=== PATIENT | female | born 1950 | race Native Hawaiian/Other Pacific Islander ===

== ENCOUNTER 2019-04-28 00:41 | Inpatient (IN) | payer MEDICARE ==
[2019-04-28 01:12] LABS: URINE SOURCE RANDOM
[2019-04-28 01:38] LABS: % NEUTROPHILS 53.8 % (40.0-80.0); HEMATOCRIT 39.5 % (41.0-60); MEAN CELL VOLUME 97.3 fl (81-100); MEAN CORPUSCULAR HEMOGLOBIN 32.1 pg (27.0-31.0); PLATELET COUNT 166 Th/cmm (150-400); RED BLOOD COUNT 4.06 Mil/cmm (3.80-5.20); RED CELL DISTRIBUTION WIDTH 12.8 % (11.5-20.0); WHITE BLOOD COUNT 3.7 Th/cmm (4.8-10.8)
--- NOTE | 2019-04-28 01:38 | ED Physician Chart ---
ED Chief Complaint/HPI - Patient Information Date Seen:: 04/28/19 Time Seen:: 01:34 Chief Complaint:: aggression geropsych History of Present Illness:: 69 yr old female with hx of schizophrenia with agitation aggression and hx of lashing out verbally aggresive and with sexually inappropriate behaviours Allergies:: Allergies Allergy/AdvReac Type Severity Reaction Status Date / Time No Known Allergies Allergy Verified 04/28/19 00:50 Vitals:: Vital Signs - 8 hr 04/28/19 00:50 Temp 98.2 F HR 79 RR 17 BP 138/69 O2 Sat % 96 ED Review of Systems - Review of Systems General/Constitutional: No fever, No chills, No weight loss, No weakness, No diaphoresis, No edema, No loss of appetite Skin: No skin lesions, No rash, No bruising Head: No headache, No light-headedness Eyes: No loss of vision, No pain, No diplopia ENT: No earache, No nasal drainage, No sore throat, No tinnitus Neck: No neck pain, No swelling, No thyromegaly, No stiffness, No mass noted Cardio Vascular: No chest pain, No palpitations, No PND, No orthopnea, No edema Pulmonary: No SOB, No cough, No sputum, No wheezing GI: No nausea, No vomiting, No diarrhea, No pain, No melena, No hematochezia, No constipation, No hematemesis G/U: No dysuria, No frequency, No hematuria Musculoskeletal: No bone or joint pain, No back pain, No muscle pain Endocrine: No polyuria, No polydipsia Psychiatric: No prior psych history, No depression, No anxiety, No suicidal ideation Hematopoietic: No bruising, No lymphadenopathy Allergic/Immuno: No urticaria, No angioedema Neurological: No syncope, No focal symptoms, No weakness, No paresthesia, No headache, No seizure, No dizziness, No confusion, No vertigo ED Past Medical History - Past Medical History Past Medical History: No significant medical hx Family Medical History - Family Member Mother History Unknown: Yes ED Physical Exam - Physical Examination General/Constitutional: Awake, Well-developed, well-nourished, Alert, No distress, GCS 15, Non-toxic appearing, Ambulatory Head: Atraumatic Eyes: Lids, conjuctiva normal, PERRL, EOMI Skin: Nl inspection, No rash, No skin lesions, No ecchymosis, Well hydrated, No lymphadenopathy ENMT: External ears, nose nl, Nasal exam nl, Lips, teeth, gums nl Neck: Nontender, Full ROM w/o pain, No JVD, No nuchal rigidity, No bruit, No mass, No stridor Respiratory: Nl effort/Exclusion, Clear to Auscultation, No Wheeze/Rhonchi/Rales Cardio Vascular: RRR, No murmur, gallop, rubs, NL S1 S2 GI: No tenderness/rebounding/guarding, No organomegaly, No hernia, Normal BS's, Nondistended, No mass/bruits, No McBurney tenderness : No CVA tenderness Extremities: No tenderness or effusion, Full ROM, normal strength in all extremities, No edema, Normal digits & nails Neuro/Psych: Alert/oriented, DTR's symmetric, Normal sensory exam, Normal motor strength, Judgement/insight normal, Mood normal, Normal gait, No focal deficits Misc: Normal back, No paraspinal tenderness ED Assessment - Assessment General Assessment: schizophrenia aggression agitation ED Septic Shock - . Is Septic Shock (SBP<90, OR Lactate>4 mmol\L) present?: No - <6hrs of presentation: Vital Signs: Vital Signs - 8 hr 04/28/ 00:50 Temp 98.2 F HR 79 RR 17 BP 138/69 O2 Sat % 96 ED Reassessment (Disposition) - Reassessment Reassessment:: schizophrenia agitation aggression - Diagnosis Diagnosis:: as above - Patient Disposition Admitted to:: [facility] Condition at Disposition:: Stable
[2019-04-28 01:39] LABS: % EOSINOPHILS 1.9 % (0.0-5.0); % LYMPHOCYTES 33.4 % (20.0-50.0); % MONOCYTES 10.9 % (2.0-10.0); EOSINOPHILE ABSOLUTE 0.1 Th/cmm (0.1-0.4); LYMPHOCYTE ABSOLUTE 1.2 Th/cmm (1.5-3.0); MONOCYTE ABSOLUTE 0.4 Th/cmm (0.3-1.0)
[2019-04-28 01:47] LABS: CHLORIDE 110 mEq/L (98-107); POTASSIUM SERUM 3.3 mEq/L (3.5-5.1); SODIUM SERUM 142 mEq/L (136-145)
[2019-04-28 01:48] LABS: ALBUMIN 3.9 gm/dL (3.7-5.3); ANION GAP 11.5 (7.0-16.0); BILIRUBIN,TOTAL 1.2 mg/dL (0.3-1.0); BUN - UREA NITROGEN 13 mg/dL (7-25); CALCIUM SERUM 9.5 mg/dL (8.6-10.3); CARBON DIOXIDE 23.8 mEq/L (21.0-31.0); CREATININE - SERUM 0.5 mg/dL (0.6-1.2); GFR AFRICAN-AMERICAN > 60.0 ml/min (>90); GFR NON AFRICAN-AMERICAN > 60.0 ml/min; GLUCOSE 110 mg/dL (70-105); SGOT 95 U/L (13-39); SGPT/ALT 99 U/L (7-52)
[2019-04-28 01:49] LABS: ALKALINE PHOSPHATASE 104 U/L (34-104)
[2019-04-28 02:00] LABS: URINE BILIRUBIN NEGATIVE (NEGATIVE); URINE BLOOD NEGATIVE (NEGATIVE); URINE CLARITY HAZY (CLEAR); URINE COLOR ORANGE; URINE GLUCOSE (UA) NEGATIVE (NEGATIVE); URINE KETONE TRACE mg/dL (NEGATIVE); URINE MICROSCOPIC INDICATED? YES; URINE PROTEIN 30 mg/dL (NEGATIVE)
[2019-04-28 02:01] LABS: URINE LEUKOCYTE ESTERASE TRACE (NEGATIVE); URINE NITRATE POSITIVE (NEGATIVE)
[2019-04-28 02:02] LABS: URINE EPITHELIAL CELLS FEW /lpf (FEW); URINE RBC 0-2 /hpf (0-5); URINE WBC 0-2 /hpf (0-5)
[2019-04-28 02:03] LABS: URINE BACTERIA MODERATE /hpf (NONE SEEN)
[2019-04-28] MEDS ORDERED: Potassium Chloride 20 mEq ER Tab PO ONE ×2 (02:22→02:27)
[2019-04-28 03:25] VITALS: BP 142/82
[2019-04-28] MEDS ORDERED: Maalox 30 mL Cup PO PRN (03:32)
[2019-04-28 06:46] LABS: CHOLESTEROL 95 mg/dL (<200); HDL -HIGH DENSITY LIPOPROTEIN 31 mg/dL (23-92); TRIGLYCERIDES 49 mg/dL (<150)
[2019-04-28] MEDS: Multivitamin Tab PO SCH (08:42)
--- NOTE | 2019-04-28 13:49 | History & Physical ---
ADMIT DATE: 04/28/2019 CHIEF COMPLAINT: Medical evaluation. HISTORY OF PRESENT ILLNESS: This is a 69-year-old female with history of chronic low back pain, seizure, psych disorder, admitted under the service of Dr. Joseph. The patient denies chest pain, shortness of breath. The patient is a poor historian. PAST MEDICAL HISTORY: As mentioned in the history of present illness. PAST SURGICAL HISTORY: Status post back surgery. ALLERGIES: No known drug allergies. MEDICATIONS: [place], Tylenol, Abilify, Colace, Pepcid, lactulose, Keppra, melatonin, multivitamin and Seroquel. FAMILY HISTORY: Noncontributory. SOCIAL HISTORY: Avid smoker. Drank when she was younger. No intravenous drug use. The patient did a lot of work including bus driving, single. REVIEW OF SYSTEMS: GENERAL: The patient denies any cardiac symptoms. HEENT: No blurred vision. LUNGS: No diagnosis of COPD or asthma. Chronic smoker. HEART: The patient denies hypertension or coronary artery disease. ABDOMEN: No nausea, vomiting, pain. GENITOURINARY: The patient denies increased frequency or dysuria. The patient with abnormal UA. NEUROLOGIC: The patient denies seizure, but the patient on Keppra. PSYCHIATRIC: See above. PHYSICAL EXAMINATION: VITAL SIGNS: Blood pressure 125/70, respirations 18, pulse 69, temperature 98.1. GENERAL: An elderly female, appears her stated age. NECK: Supple. LUNGS: Equal breath sounds, otherwise clear to auscultation. HEART: Regular rate and rhythm without appreciable murmur. ABDOMEN: Soft, nontender. Positive bowel sounds. ____ refused. EXTREMITIES: No clubbing, cyanosis or edema. NEUROLOGIC: The patient is alert. ____. LABORATORY DATA: WBC 3.7, hemoglobin 13, platelets 166. Sodium 142, potassium 3.3, BUN 13, creatinine 0.5, glucose 110, AST and ALT, 95 and 99 respectively. UA showed moderate bacteria. ASSESSMENT AND PLAN: Leukopenia, hypokalemia, elevated liver function tests, and denies hepatitis, seizure, but severe low back pain. Continue the patient on lactulose and ____ medications. The patient was given potassium and antibiotic. We will monitor the patient's signs and symptoms for urinary tract infection. We will continue to follow with you. JOB# [id number]
[2019-04-28] MEDS: Lactulose 10 Gm/15 mL 30mL UDC PO SCH ×2 (14:38→20:47)
[2019-04-28] MEDS ORDERED: Non-Formulary Item 1 EA (Melatonin [Melatonin] 3 MG) PO SCH (21:00)
[2019-04-29 07:05] LABS: A1C 5.2 % (4.8-5.6)
[2019-04-29] MEDS: Multivitamin Tab PO SCH ×2 (08:36→08:45)
[2019-04-29] MEDS: Multivitamin w/ Minerals Tab PO SCH ×2 (08:37→08:45)
[2019-04-29] MEDS: Lactulose 10 Gm/15 mL 30mL UDC PO SCH ×3 (08:40→20:44)
[2019-04-29 09:11] LABS: HEP A AB IGM Negative (Negative); HEP B CORE IGM Negative (Negative); HEP B SURFACE AG QL Negative (Negative); HEP C ANTIBODY >11.0 s/co ratio (0.0-0.9)
--- NOTE | 2019-04-29 12:18 | Progress Notes ---
DATE: 04/29/2019 SUBJECTIVE: The patient was up in wheelchair in the hallway in front of the dining room. The patient was alert, calm and pleasant. The patient reported that she is doing well. She said she is happy. The patient reported that she just have the breakfast. The patient reported that she did not eat the meat that was provided this morning because she ate beef last evening. The patient reported that she slept well. When asked if she took her medications, the patient stated that she did not take a blue pill, which she said was for seizure. The patient stated that she does not have a seizure. The patient went on to describe what happened and how they thought that she has a seizure, but she did not have seizure. The patient continued to have some flight of ideas. The patient continued to be delusional, talking about different things. The patient has delusion that she does need to take her medications. OBJECTIVE: The patient continued to be calm and pleasant this morning; however, the patient continued to exhibit psychotic symptoms. The staff reported that the patient had refused to take all her medications stating that she does not need them. The staff reported that the patient went out for a smoke. When the staff asked her to put the cigarette butt in the cigarette butt receptacle, the patient did not want to do it and the patient made a big scene. The staff reported that the data entry processor has to go and get the receptacle from another part of the patio for the patient to dispose her cigarette butt. The staff reported that the patient has been eating okay and slept okay. ASSESSMENT: 1. Schizophrenia, chronic paranoid type, in acute exacerbation. 2. Vascular dementia with psychosis, depression and behavioral disturbance. 3. Impulse control disorder, not otherwise specified. 4. Personality change due to medical condition. PLAN: We will continue the patient on Abilify and lower dose of Seroquel. If the patient continued to refuse to take her medication, we will apply for [place] and we will discuss the situation with oncology social worker for possibly applying for a conservatorship since the patient continued to have this delusion that she does need to take medication. JOB# [id number]
--- NOTE | 2019-04-29 12:37 | Internal Medicine Prog Note ---
Internal Medicine Subjective - Subjective Patient seen and examined:: with staff, chart reviewed Patient is:: awake, verbal, interactive Patient Complaints of:: congestion Per staff patient has:: no adverse event, no episodes of fall, poor appetite Internal Medicine Objective - Results Result Diagrams: 04/28/19 01:05 04/28/19 01:00 Recent Labs: Laboratory Last Values WBC 3.7 Th/cmm (4.8-10.8) L 04/28/19 01:05 RBC 4.06 Mil/cmm (3.80-5.20) 04/28/19 01:05 Hgb 13.0 gm/dL (12-16) 04/28/19 01:05 Hct 39.5 % (41.0-60) L 04/28/19 01:05 MCV 97.3 fl (81-100) 04/28/19 01:05 MCH 32.1 pg (27.0-31.0) H 04/28/19 01:05 MCHC Differential 33.0 pg (28.0-36.0) 04/28/19 01:05 RDW 12.8 % (11.5-20.0) 04/28/19 01:05 Plt Count 166 Th/cmm (150-400) 04/28/19 01:05 MPV 7.6 fl 04/28/19 01:05 Neutrophils % 53.8 % (40.0-80.0) 04/28/19 01:05 Lymphocytes % 33.4 % (20.0-50.0) 04/28/19 01:05 Monocytes % 10.9 % (2.0-10.0) H 04/28/19 01:05 Eosinophils % 1.9 % (0.0-5.0) 04/28/19 01:05 Basophils % 0.0 % (0.0-2.0) 04/28/19 01:05 Sodium 142 mEq/L (136-145) 04/28/19 01:00 Potassium 3.3 mEq/L (3.5-5.1) L 04/28/19 01:00 Chloride 110 mEq/L (98-107) H 04/28/19 01:00 Carbon Dioxide 23.8 mEq/L (21.0-31.0) 04/28/19 01:00 Anion Gap 11.5 (7.0-16.0) 04/28/19 01:00 BUN 13 mg/dL (7-25) 04/28/19 01:00 Creatinine 0.5 mg/dL (0.6-1.2) L 04/28/19 01:00 Est GFR ( Amer) > 60.0 ml/min (>90) 04/28/19 01:00 Est GFR (Non-Af Amer) > 60.0 ml/min 04/28/19 01:00 BUN/Creatinine Ratio 26.0 04/28/19 01:00 Glucose 110 mg/dL (70-105) H 04/28/19 01:00 Whole Bld Lactic Acid 1.05 mmol/L (0.60-1.99) 04/28/19 01:05 Calcium 9.5 mg/dL (8.6-10.3) 04/28/19 01:00 Total Bilirubin 1.2 mg/dL (0.3-1.0) H 04/28/19 01:00 AST 95 U/L (13-39) H 04/28/19 01:00 ALT 99 U/L (7-52) H 04/28/19 01:00 Alkaline Phosphatase 104 U/L (34-104) 04/28/19 01:00 Total Protein 8.0 gm/dL (6.0-8.3) 04/28/19 01:00 Albumin 3.9 gm/dL (3.7-5.3) 04/28/19 01:00 Globulin 4.1 gm/dL 04/28/19 01:00 Albumin/Globulin Ratio 1.0 (1.0-1.8) 04/28/19 01:00 Triglycerides 49 mg/dL (<150) 04/28/19 01:00 Cholesterol 95 mg/dL (<200) 04/28/19 01:00 LDL Cholesterol Direct 57 mg/dL (75-193) L 04/28/19 01:00 HDL Cholesterol 31 mg/dL (23-92) 04/28/19 01:00 TSH 1.00 uIU/ml (0.34-5.60) 04/28/19 01:00 Urine Source RANDOM 04/28/19 01:00 Urine Color ORANGE 04/28/19 01:00 Urine Clarity HAZY (CLEAR) 04/28/19 01:00 Urine pH 6.0 (4.6 - 8.0) 04/28/19 01:00 Ur Specific [place] 1.025 (1.005-1.030) 04/28/19 01:00 Urine Protein 30 mg/dL (NEGATIVE) H 04/28/19 01:00 Urine Glucose (UA) NEGATIVE mg/dL (NEGATIVE) 04/28/19 01:00 Urine Ketones TRACE mg/dL (NEGATIVE) 04/28/19 01:00 Urine Blood NEGATIVE (NEGATIVE) 04/28/19 01:00 Urine Nitrate POSITIVE (NEGATIVE) H 04/28/19 01:00 Urine Bilirubin NEGATIVE (NEGATIVE) 04/28/19 01:00 Urine Urobilinogen 4.0 E.U./dL (0.2 - 1.0) H 04/28/19 01:00 Ur Leukocyte Esterase TRACE (NEGATIVE) H 04/28/19 01:00 Urine RBC 0-2 /hpf (0-5) 04/28/19 01:00 Urine WBC 0-2 /hpf (0-5) 04/28/19 01:00 Ur Epithelial Cells FEW /lpf (FEW) 04/28/19 01:00 Urine Bacteria MODERATE /hpf (NONE SEEN) H 04/28/19 01:00 Hepatitis A IgM Ab Negative (Negative) 04/28/19 08:56 Hep Bs Antigen Negative (Negative) 04/28/19 08:56 Hep B Core IgM Ab Negative (Negative) 04/28/19 08:56 Hepatitis C Antibody >11.0 s/co ratio (0.0-0.9) H 04/28/19 08:56 - Physical Exam Vitals and I&O: Vital Signs Temp 99.0 F 04/29/19 06:28 Pulse 80 04/29/19 06:28 Resp 20 04/29/19 06:28 BP 112/72 04/28/19 21:11 Pulse Ox 97 04/29/19 06:28 Intake & Output 04/28/19 04/29/19 04/29/19 18:59 06:59 18:59 Intake Total 500 360 Balance 500 360 Intake: Oral 500 360 Other: # Voids 3 2 # Bowel Movements 1 1 Active Medications: Current Medications Acetaminophen (Tylenol) 650 mg PO Q4HR PRN PRN Reason: Pain or Fever >101 Stop: 06/27/19 12:31 Al Hydrox/Mg Hydrox/Simethicone (Maalox) 30 ml PO Q4HR PRN PRN Reason: GI DISTRESS Stop: 06/27/19 03:31 Aripiprazole (Abilify) 10 mg PO DAILY [facility]; Protocol Stop: 06/28/19 08:59 Last Admin: 04/29/19 08:45 Dose: Not Given Docusate Sodium (Colace) 100 mg PO DAILY [facility] Stop: 06/28/19 08:59 Last Admin: 04/29/19 08:45 Dose: Not Given Famotidine (Pepcid) 40 mg PO DAILY [facility] Stop: 06/28/19 08:59 Last Admin: 04/29/19 08:45 Dose: Not Given Lactulose (Cephulac) 30 gm PO TID [facility] Stop: 06/27/19 13:59 Last Admin: 04/29/19 08:40 Dose: Not Given Levetiracetam (Keppra) 500 mg PO Q12H [facility] Stop: 06/27/19 12:44 Last Admin: 04/29/19 01:00 Dose: Not Given Multivitamins/Vitamin C (Theragran) 1 tab PO DAILY [facility] Stop: 06/27/19 08:59 Last Admin: 04/29/19 08:45 Dose: Not Given Quetiapine Fumarate (Seroquel) 25 mg PO BID [facility]; Protocol Stop: 05/02/19 16:59 Last Admin: 04/29/19 08:44 Dose: Not Given Zolpidem Tartrate (Ambien) 5 mg PO HS PRN PRN Reason: Insomnia Stop: 06/27/19 03:31 General: demented HEENT: NC/AT, PERRLA, EOMI Neck: Supple, No JVD Lungs: CTAB Cardiovascular: RRR, Normal S1, Normal S2 Abdomen: soft, thin, non-distended, positive bowel sound Extremities: excoriation Internal Medicine Assmt/Plan - Assessment Assessment: ASSESSMENT AND PLAN: Leukopenia, hypokalemia, elevated liver function tests, and denies hepatitis, seizure, but severe low back pain. - Plan Plan: PLAN: Continue the patient on lactulose and _rest of___ medications. The patient was given potassium and antibiotic. We will monitor the patient's signs and symptoms for urinary tract infection. We will continue to follow with you.
--- NOTE | 2019-04-29 12:46 | Psychiatric Evaluation ---
DATE OF SERVICE: 04/28/2019 REASON FOR ADMISSION: The patient was admitted for exacerbation of her psychosis as well as increased agitation and aggression at [facility]. HISTORY OF PRESENT ILLNESS: The patient is a 69-year-old female who has been seen at [facility]. On the day of admission, the staff called to request direct admission for the patient because the patient has increased episodes of agitation and aggression. Upon interview, the patient appeared to be a poor historian. The patient was able to give her name. The patient stated that she is 79 years old. The patient was able to give her birthday. When asked why she is here, the patient stated that she got upset because the staff over there did not want to take care of her. The patient appeared to be quite delusional. The patient talked about different things. The patient tended to ramble with flight of ideas. The patient does not really have pressured speech. When asked how many times she has been , the patient had difficulty recalling. The patient had to mention each of her ex-husbands. Finally, the patient was able to count 5. The patient reported that she all of them. The patient stated that she does not have any children. The patient reported that she has been eating and sleeping okay. The patient reported that she had been in psychiatric hospital before, but not able to remember exactly how many times. The patient mentioned that she had been in the hospital in [place]. The patient was not able to say what she was diagnosed with. The patient repeated herself several times that she is not crazy. The patient reported that her mother has been in the institution before. PAST PSYCHIATRIC HISTORY: As above. The patient reported that she had been in psychiatric hospital before. MEDICAL HISTORY: Traumatic subdural hematoma of the brain, seizure disorder and spondylosis. SURGICAL HISTORY: The patient reported that she had back surgery. MEDICATIONS: The patient currently is on Tylenol, Abilify 5 mg daily, ceftriaxone, docusate sodium, Pepcid 40 mg daily, lactulose, Keppra, multiple vitamin, potassium chloride, Seroquel 50 mg b.i.d. and Ambien 5 mg at bedtime p.r.n. ALLERGIES: No known allergy. PERSONAL HISTORY: The patient reported that she is the youngest of 3. She has 2 older brothers. The patient reported that she went to medical school, but she dropped out when she saw them do surgery. 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 SUBSTANCE ABUSE HISTORY: The patient admitted to drinking and smoking before. The patient reported that she tried marijuana once. MENTAL STATUS EXAMINATION: The patient appeared appropriate for stated age. The patient was cooperative, maintained good eye contact. SPEECH: appeared to be normal, but somewhat rambling. The patient appeared to have some flight of ideas. MOOD: The patient reported that she is doing okay. When asked to rate her mood on a 0-10 scale, 0 being normal and happy, and 10 being very depressed. The patient was not able to give a specific number. The patient was not able to give logical interpretation to any of the 3 proverbs. MEMORY: appeared to be reasonably good for immediate memory. The patient was able to repeat the 4 items after they were given to her twice. The patient was able to recall 3 or 4 items after a few minutes. When given hints, the patient still cannot recall the fourth item. INSIGHT: poor. JUDGMENT: impaired. DIAGNOSTIC IMPRESSION: AXIS I: 1. Schizophrenia, chronic paranoid type, in acute exacerbation. 2. Vascular dementia with psychosis. 3. Impulse control disorder, not otherwise specified. 4. Personality change due to medical condition. AXIS II: Deferred. AXIS III: Traumatic subdural hematoma of the brain, seizure disorder and spondylosis. AXIS IV: Medical and mental illnesses. AXIS V: Current 20, past year unknown. PLAN: We will increase Abilify to 10 mg p.o. q. a.m. We will taper off of Seroquel for duplication of antipsychotic. We will adjust the Abilify to control her psychotic symptoms. We will monitor to see if the patient will be cooperative with her medications. Consider adding Trileptal for poor impulse control. ESTIMATED LENGTH OF STAY: 7-10 days. DISCHARGE CRITERIA: Include improvement of her psychosis and continued compliance with medications and treatment. JOB# [id number] [facility]
--- NOTE | 2019-04-29 20:41 | Consultation ---
DATE OF CONSULTATION: 04/29/2019 REQUESTING PHYSICIAN: Luis Miguel Reyes M.D. TYPE OF CONSULTATION: Psychology. HISTORY OF PRESENT ILLNESS: The patient is a 69-year-old female. The following is by review of the medical record and by the patient's self-report. The patient is being admitted due to increased agitation and aggression as well as exacerbation of psychosis. The patient is a resident of [facility]. The staff at the patient's facility reports that the patient had been intrusive and aggressive with the staff at her facility. Upon interview, the patient stated that she did get upset because she feels the staff is ignoring her and not taking care of her. The patient presents with rambling speech and is being intrusive with the staff on the geropsychiatric unit. The patient was having difficulty responding relevantly to the clinical questions being asked. The patient did not state whether she had been hospitalized here before; however, the patient states she has had a previous psychiatric hospitalization. The patient appears to be difficult to cognitively and behaviorally redirect. PAST MEDICAL HISTORY: Please see history and physical by Dr. Mccallum. PAST PSYCHIATRIC HISTORY: The record indicates the patient has a history of previous psychiatric hospitalizations. The patient is under the care of a psychiatrist at her facility. The patient's record indicates a history of schizophrenia, chronic paranoid type. CURRENT MEDICATIONS: Please see medication reconciliation. ALLERGIES: No known allergies. SUBSTANCE ABUSE HISTORY: The patient denied any history of illicit drug use. The patient admits to using alcohol and also tobacco in the past. The patient stated she used to be a smoker and had tried cannabis once. PSYCHOSOCIAL HISTORY: The patient states that she has 2 older brothers. 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 The patient stated that she went to medical school. The patient did not state any other educational history. The patient states that she is a Yazidi. The patient states that she is actually and has never been and has no children. The patient went on to state that she had been 5 times. The information above is unverifiable at the time of this clinical interview. She denied any history of physical or sexual abuse. She denied any current legal problems. MENTAL STATUS EXAMINATION: The patient appears to be her stated age. The patient's attitude is generally cooperative. Eye contact is good. Speech is rambling and pressured. Thought process includes flight of ideas as well as ideas of reference. The patient did not present with any suspiciousness. The patient denied any auditory or visual hallucinations. The patient denied any suicidal ideation, plan or intention. Mood is euthymic. Affect is broad and animated. The patient is not making much sense and is answering questions at times irrelevantly. The patient's behavior on the unit has been intrusive with staff as well as peers. The patient is not responding well to cognitive and behavioral redirection. Impulse control is inadequate. Concentration seems to be fair to poor and is highly distractible. The patient is not able to sustain focus and attention for more than approximately 5-10 seconds. The patient was unable to perform the serial 3 subtractions. The patient was able to repeat 3 items given to her the first time and was able to repeat 2 out of the 3 items after several minutes. The patient was unable to recall milestones and seems possibly to be confabulating regarding her long-term memory and history. Immediate memory seems to be intact. Short-term memory is fair. Sensorium is alert and oriented times 3. The patient was unable to give a logical interpretation to any of the proverbs. Insight is poor. Judgment is impaired. DIAGNOSTIC IMPRESSION: AXIS I: 1. Schizophrenia, chronic paranoid type by history. 2. Vascular dementia with psychosis. 3. Impulse control disorder, not otherwise specified. 4. Personality change due to medical condition. AXIS II: Deferred. AXIS III: Please see history and physical by Dr. Mccallum. TREATMENT PLAN: The patient has been seen by Dr. Reyes for psychiatric evaluation and for the management of the patient's psychotropic medications. The attending psychiatrist indicates that the patient's Abilify will be increased to 10 mg p.o. q.a.m. The patient is being tapered off of Seroquel due to duplication of an antipsychotic medication. We will provide supportive psychotherapy to include reality orientation, differentiation and integration. We will provide a limit setting as well as boundary definitions and boundary awareness due to the patient's intrusiveness with peers and impoverished understanding of social boundaries. We will provide coping strategies for phase of life issues as well as for chronic severe mental illness. We will encourage the patient to demonstrate emotional and self-regulation and to verbalize her concerns versus acting out. We will provide motivational enhancement for the patient to become compliant and stay compliant with all aspects of her care and treatment. Thank you, Dr. Reyes for this consult and the opportunity to participate in this patient's care. JOB# [id number] [facility]
[2019-04-30] MEDS: Multivitamin w/ Minerals Tab PO SCH (08:02)
[2019-04-30] MEDS: Lactulose 10 Gm/15 mL 30mL UDC PO SCH ×3 (08:02→21:25)
[2019-04-30] MEDS: Multivitamin Tab PO SCH (08:02)
--- NOTE | 2019-04-30 14:00 | Internal Medicine Prog Note ---
Internal Medicine Subjective - Subjective Patient seen and examined:: with staff, chart reviewed Patient is:: awake, verbal, interactive Patient Complaints of:: congestion Per staff patient has:: no adverse event, no episodes of fall, poor appetite Internal Medicine Objective - Results Result Diagrams: 04/28/19 01:05 04/28/19 01:00 Recent Labs: Laboratory Last Values WBC 3.7 Th/cmm (4.8-10.8) L 04/28/19 01:05 RBC 4.06 Mil/cmm (3.80-5.20) 04/28/19 01:05 Hgb 13.0 gm/dL (12-16) 04/28/19 01:05 Hct 39.5 % (41.0-60) L 04/28/19 01:05 MCV 97.3 fl (81-100) 04/28/19 01:05 MCH 32.1 pg (27.0-31.0) H 04/28/19 01:05 MCHC Differential 33.0 pg (28.0-36.0) 04/28/19 01:05 RDW 12.8 % (11.5-20.0) 04/28/19 01:05 Plt Count 166 Th/cmm (150-400) 04/28/19 01:05 MPV 7.6 fl 04/28/19 01:05 Neutrophils % 53.8 % (40.0-80.0) 04/28/19 01:05 Lymphocytes % 33.4 % (20.0-50.0) 04/28/19 01:05 Monocytes % 10.9 % (2.0-10.0) H 04/28/19 01:05 Eosinophils % 1.9 % (0.0-5.0) 04/28/19 01:05 Basophils % 0.0 % (0.0-2.0) 04/28/19 01:05 Sodium 142 mEq/L (136-145) 04/28/19 01:00 Potassium 3.3 mEq/L (3.5-5.1) L 04/28/19 01:00 Chloride 110 mEq/L (98-107) H 04/28/19 01:00 Carbon Dioxide 23.8 mEq/L (21.0-31.0) 04/28/19 01:00 Anion Gap 11.5 (7.0-16.0) 04/28/19 01:00 BUN 13 mg/dL (7-25) 04/28/19 01:00 Creatinine 0.5 mg/dL (0.6-1.2) L 04/28/19 01:00 Est GFR ( Amer) > 60.0 ml/min (>90) 04/28/19 01:00 Est GFR (Non-Af Amer) > 60.0 ml/min 04/28/19 01:00 BUN/Creatinine Ratio 26.0 04/28/19 01:00 Glucose 110 mg/dL (70-105) H 04/28/19 01:00 Whole Bld Lactic Acid 1.05 mmol/L (0.60-1.99) 04/28/19 01:05 Calcium 9.5 mg/dL (8.6-10.3) 04/28/19 01:00 Total Bilirubin 1.2 mg/dL (0.3-1.0) H 04/28/19 01:00 AST 95 U/L (13-39) H 04/28/19 01:00 ALT 99 U/L (7-52) H 04/28/19 01:00 Alkaline Phosphatase 104 U/L (34-104) 04/28/19 01:00 Total Protein 8.0 gm/dL (6.0-8.3) 04/28/19 01:00 Albumin 3.9 gm/dL (3.7-5.3) 04/28/19 01:00 Globulin 4.1 gm/dL 04/28/19 01:00 Albumin/Globulin Ratio 1.0 (1.0-1.8) 04/28/19 01:00 Triglycerides 49 mg/dL (<150) 04/28/19 01:00 Cholesterol 95 mg/dL (<200) 04/28/19 01:00 LDL Cholesterol Direct 57 mg/dL (75-193) L 04/28/19 01:00 HDL Cholesterol 31 mg/dL (23-92) 04/28/19 01:00 TSH 1.00 uIU/ml (0.34-5.60) 04/28/19 01:00 Urine Source RANDOM 04/28/19 01:00 Urine Color ORANGE 04/28/19 01:00 Urine Clarity HAZY (CLEAR) 04/28/19 01:00 Urine pH 6.0 (4.6 - 8.0) 04/28/19 01:00 Ur Specific [place] 1.025 (1.005-1.030) 04/28/19 01:00 Urine Protein 30 mg/dL (NEGATIVE) H 04/28/19 01:00 Urine Glucose (UA) NEGATIVE mg/dL (NEGATIVE) 04/28/19 01:00 Urine Ketones TRACE mg/dL (NEGATIVE) 04/28/19 01:00 Urine Blood NEGATIVE (NEGATIVE) 04/28/19 01:00 Urine Nitrate POSITIVE (NEGATIVE) H 04/28/19 01:00 Urine Bilirubin NEGATIVE (NEGATIVE) 04/28/19 01:00 Urine Urobilinogen 4.0 E.U./dL (0.2 - 1.0) H 04/28/19 01:00 Ur Leukocyte Esterase TRACE (NEGATIVE) H 04/28/19 01:00 Urine RBC 0-2 /hpf (0-5) 04/28/19 01:00 Urine WBC 0-2 /hpf (0-5) 04/28/19 01:00 Ur Epithelial Cells FEW /lpf (FEW) 04/28/19 01:00 Urine Bacteria MODERATE /hpf (NONE SEEN) H 04/28/19 01:00 Hepatitis A IgM Ab Negative (Negative) 04/28/19 08:56 Hep Bs Antigen Negative (Negative) 04/28/19 08:56 Hep B Core IgM Ab Negative (Negative) 04/28/19 08:56 Hepatitis C Antibody >11.0 s/co ratio (0.0-0.9) H 04/28/19 08:56 - Physical Exam Vitals and I&O: Vital Signs Temp 96.8 F 04/30/19 13:45 Pulse 76 04/30/19 13:45 Resp 20 04/30/19 13:45 BP 107/65 04/30/19 13:45 Pulse Ox 99 04/30/19 13:45 Intake & Output 04/29/19 04/30/19 04/30/19 18:59 06:59 18:59 Intake Total 900 Balance 900 Intake: Oral 900 Other: # Voids 4 # Bowel Movements 0 Active Medications: Current Medications Acetaminophen (Tylenol) 650 mg PO Q4HR PRN PRN Reason: Pain or Fever >101 Stop: 06/27/19 12:31 Al Hydrox/Mg Hydrox/Simethicone (Maalox) 30 ml PO Q4HR PRN PRN Reason: GI DISTRESS Stop: 06/27/19 03:31 Aripiprazole (Abilify) 10 mg PO DAILY [facility]; Protocol Stop: 06/28/19 08:59 Last Admin: 04/30/19 10:00 Dose: 10 mg Docusate Sodium (Colace) 100 mg PO DAILY [facility] Stop: 06/28/19 08:59 Last Admin: 04/30/19 08:01 Dose: Not Given Famotidine (Pepcid) 40 mg PO DAILY [facility] Stop: 06/28/19 08:59 Last Admin: 04/30/19 08:02 Dose: Not Given Lactulose (Cephulac) 30 gm PO TID [facility] Stop: 06/27/19 13:59 Last Admin: 04/30/19 08:02 Dose: Not Given Levetiracetam (Keppra) 500 mg PO Q12H [facility] Stop: 06/27/19 12:44 Last Admin: 04/30/19 02:52 Dose: Not Given Multivitamins/Vitamin C (Theragran) 1 tab PO DAILY [facility] Stop: 06/27/19 08:59 Last Admin: 04/30/19 08:02 Dose: Not Given Quetiapine Fumarate (Seroquel) 25 mg PO BID [facility]; Protocol Stop: 05/02/19 16:59 Last Admin: 04/30/19 10:00 Dose: 25 mg Zolpidem Tartrate (Ambien) 5 mg PO HS PRN PRN Reason: Insomnia Stop: 06/27/19 03:31 Last Admin: 04/29/19 20:45 Dose: 5 mg General: demented HEENT: NC/AT, PERRLA, EOMI Neck: Supple, No JVD Lungs: CTAB Cardiovascular: RRR, Normal S1, Normal S2 Abdomen: soft, thin, non-distended, positive bowel sound Extremities: excoriation Internal Medicine Assmt/Plan - Assessment Assessment: ASSESSMENT AND PLAN: Leukopenia, hypokalemia, elevated liver function tests, and denies hepatitis, seizure, but severe low back pain. - Plan Plan: PLAN: Continue the patient on lactulose and _rest of___ medications. The patient was given potassium and antibiotic. We will monitor the patient's signs and symptoms for urinary tract infection. We will continue to follow with you.
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
[2019-05-01] MEDS: Multivitamin Tab PO SCH (08:01)
[2019-05-01] MEDS: Multivitamin w/ Minerals Tab PO SCH (08:01)
[2019-05-01] MEDS: Lactulose 10 Gm/15 mL 30mL UDC PO SCH ×3 (08:01→21:23)
--- NOTE | 2019-05-01 14:04 | Internal Medicine Prog Note ---
Internal Medicine Subjective - Subjective Patient seen and examined:: with staff, chart reviewed Patient is:: awake, verbal, interactive Patient Complaints of:: congestion Per staff patient has:: no adverse event, no episodes of fall, poor appetite Internal Medicine Objective - Results Result Diagrams: 04/28/19 01:05 04/28/19 01:00 Recent Labs: Laboratory Last Values WBC 3.7 Th/cmm (4.8-10.8) L 04/28/19 01:05 RBC 4.06 Mil/cmm (3.80-5.20) 04/28/19 01:05 Hgb 13.0 gm/dL (12-16) 04/28/19 01:05 Hct 39.5 % (41.0-60) L 04/28/19 01:05 MCV 97.3 fl (81-100) 04/28/19 01:05 MCH 32.1 pg (27.0-31.0) H 04/28/19 01:05 MCHC Differential 33.0 pg (28.0-36.0) 04/28/19 01:05 RDW 12.8 % (11.5-20.0) 04/28/19 01:05 Plt Count 166 Th/cmm (150-400) 04/28/19 01:05 MPV 7.6 fl 04/28/19 01:05 Neutrophils % 53.8 % (40.0-80.0) 04/28/19 01:05 Lymphocytes % 33.4 % (20.0-50.0) 04/28/19 01:05 Monocytes % 10.9 % (2.0-10.0) H 04/28/19 01:05 Eosinophils % 1.9 % (0.0-5.0) 04/28/19 01:05 Basophils % 0.0 % (0.0-2.0) 04/28/19 01:05 Sodium 142 mEq/L (136-145) 04/28/19 01:00 Potassium 3.3 mEq/L (3.5-5.1) L 04/28/19 01:00 Chloride 110 mEq/L (98-107) H 04/28/19 01:00 Carbon Dioxide 23.8 mEq/L (21.0-31.0) 04/28/19 01:00 Anion Gap 11.5 (7.0-16.0) 04/28/19 01:00 BUN 13 mg/dL (7-25) 04/28/19 01:00 Creatinine 0.5 mg/dL (0.6-1.2) L 04/28/19 01:00 Est GFR ( Amer) > 60.0 ml/min (>90) 04/28/19 01:00 Est GFR (Non-Af Amer) > 60.0 ml/min 04/28/19 01:00 BUN/Creatinine Ratio 26.0 04/28/19 01:00 Glucose 110 mg/dL (70-105) H 04/28/19 01:00 Whole Bld Lactic Acid 1.05 mmol/L (0.60-1.99) 04/28/19 01:05 Calcium 9.5 mg/dL (8.6-10.3) 04/28/19 01:00 Total Bilirubin 1.2 mg/dL (0.3-1.0) H 04/28/19 01:00 AST 95 U/L (13-39) H 04/28/19 01:00 ALT 99 U/L (7-52) H 04/28/19 01:00 Alkaline Phosphatase 104 U/L (34-104) 04/28/19 01:00 Total Protein 8.0 gm/dL (6.0-8.3) 04/28/19 01:00 Albumin 3.9 gm/dL (3.7-5.3) 04/28/19 01:00 Globulin 4.1 gm/dL 04/28/19 01:00 Albumin/Globulin Ratio 1.0 (1.0-1.8) 04/28/19 01:00 Triglycerides 49 mg/dL (<150) 04/28/19 01:00 Cholesterol 95 mg/dL (<200) 04/28/19 01:00 LDL Cholesterol Direct 57 mg/dL (75-193) L 04/28/19 01:00 HDL Cholesterol 31 mg/dL (23-92) 04/28/19 01:00 TSH 1.00 uIU/ml (0.34-5.60) 04/28/19 01:00 Urine Source RANDOM 04/28/19 01:00 Urine Color ORANGE 04/28/19 01:00 Urine Clarity HAZY (CLEAR) 04/28/19 01:00 Urine pH 6.0 (4.6 - 8.0) 04/28/19 01:00 Ur Specific [place] 1.025 (1.005-1.030) 04/28/19 01:00 Urine Protein 30 mg/dL (NEGATIVE) H 04/28/19 01:00 Urine Glucose (UA) NEGATIVE mg/dL (NEGATIVE) 04/28/19 01:00 Urine Ketones TRACE mg/dL (NEGATIVE) 04/28/19 01:00 Urine Blood NEGATIVE (NEGATIVE) 04/28/19 01:00 Urine Nitrate POSITIVE (NEGATIVE) H 04/28/19 01:00 Urine Bilirubin NEGATIVE (NEGATIVE) 04/28/19 01:00 Urine Urobilinogen 4.0 E.U./dL (0.2 - 1.0) H 04/28/19 01:00 Ur Leukocyte Esterase TRACE (NEGATIVE) H 04/28/19 01:00 Urine RBC 0-2 /hpf (0-5) 04/28/19 01:00 Urine WBC 0-2 /hpf (0-5) 04/28/19 01:00 Ur Epithelial Cells FEW /lpf (FEW) 04/28/19 01:00 Urine Bacteria MODERATE /hpf (NONE SEEN) H 04/28/19 01:00 Hepatitis A IgM Ab Negative (Negative) 04/28/19 08:56 Hep Bs Antigen Negative (Negative) 04/28/19 08:56 Hep B Core IgM Ab Negative (Negative) 04/28/19 08:56 Hepatitis C Antibody >11.0 s/co ratio (0.0-0.9) H 04/28/19 08:56 - Physical Exam Vitals and I&O: Vital Signs Temp 98.3 F 05/01/19 13:54 Pulse 99 05/01/19 13:54 Resp 20 05/01/19 13:54 BP 118/57 05/01/19 13:54 Pulse Ox 94 05/01/19 13:54 Intake & Output 04/30/19 05/01/19 05/01/19 18:59 06:59 18:59 Intake Total 120 Balance 120 Intake: Oral 120 Other: # Voids 3 Active Medications: Current Medications Acetaminophen (Tylenol) 650 mg PO Q4HR PRN PRN Reason: Pain or Fever >101 Stop: 06/27/19 12:31 Last Admin: 05/01/19 09:02 Dose: 650 mg Al Hydrox/Mg Hydrox/Simethicone (Maalox) 30 ml PO Q4HR PRN PRN Reason: GI DISTRESS Stop: 06/27/19 03:31 Aripiprazole (Abilify) 10 mg PO DAILY [facility]; Protocol Stop: 06/28/19 08:59 Last Admin: 05/01/19 10:00 Dose: 10 mg Docusate Sodium (Colace) 100 mg PO DAILY [facility] Stop: 06/28/19 08:59 Last Admin: 05/01/19 08:01 Dose: Not Given Famotidine (Pepcid) 40 mg PO DAILY [facility] Stop: 06/28/19 08:59 Last Admin: 05/01/19 08:01 Dose: Not Given Lactulose (Cephulac) 30 gm PO TID [facility] Stop: 06/27/19 13:59 Last Admin: 05/01/19 08:01 Dose: Not Given Levetiracetam (Keppra) 500 mg PO Q12H [facility] Stop: 06/27/19 12:44 Last Admin: 05/01/19 00:50 Dose: Not Given Multivitamins/Vitamin C (Theragran) 1 tab PO DAILY [facility] Stop: 06/27/19 08:59 Last Admin: 05/01/19 08:01 Dose: Not Given Quetiapine Fumarate (Seroquel) 25 mg PO BID [facility]; Protocol Stop: 05/02/19 16:59 Last Admin: 05/01/19 08:01 Dose: Not Given Zolpidem Tartrate (Ambien) 5 mg PO HS PRN PRN Reason: Insomnia Stop: 06/27/19 03:31 Last Admin: 04/30/19 21:25 Dose: 5 mg General: demented HEENT: NC/AT, PERRLA, EOMI Neck: Supple, No JVD Lungs: CTAB Cardiovascular: RRR, Normal S1, Normal S2 Abdomen: soft, thin, non-distended, positive bowel sound Extremities: excoriation Internal Medicine Assmt/Plan - Assessment Assessment: ASSESSMENT AND PLAN: Leukopenia, hypokalemia, elevated liver function tests, and denies hepatitis, seizure, but severe low back pain. - Plan Plan: PLAN: Continue the patient on lactulose and _rest of___ medications. The patient was given potassium and antibiotic. We will monitor the patient's signs and symptoms for urinary tract infection. We will continue to follow with you.
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
--- NOTE | 2019-05-02 12:40 | Internal Medicine Prog Note ---
Internal Medicine Subjective - Subjective Patient seen and examined:: with staff, chart reviewed Patient is:: awake, verbal, interactive Patient Complaints of:: congestion Per staff patient has:: no adverse event, no episodes of fall, poor appetite Internal Medicine Objective - Results Result Diagrams: 04/28/19 01:05 04/28/19 01:00 Recent Labs: Laboratory Last Values WBC 3.7 Th/cmm (4.8-10.8) L 04/28/19 01:05 RBC 4.06 Mil/cmm (3.80-5.20) 04/28/19 01:05 Hgb 13.0 gm/dL (12-16) 04/28/19 01:05 Hct 39.5 % (41.0-60) L 04/28/19 01:05 MCV 97.3 fl (81-100) 04/28/19 01:05 MCH 32.1 pg (27.0-31.0) H 04/28/19 01:05 MCHC Differential 33.0 pg (28.0-36.0) 04/28/19 01:05 RDW 12.8 % (11.5-20.0) 04/28/19 01:05 Plt Count 166 Th/cmm (150-400) 04/28/19 01:05 MPV 7.6 fl 04/28/19 01:05 Neutrophils % 53.8 % (40.0-80.0) 04/28/19 01:05 Lymphocytes % 33.4 % (20.0-50.0) 04/28/19 01:05 Monocytes % 10.9 % (2.0-10.0) H 04/28/19 01:05 Eosinophils % 1.9 % (0.0-5.0) 04/28/19 01:05 Basophils % 0.0 % (0.0-2.0) 04/28/19 01:05 Sodium 142 mEq/L (136-145) 04/28/19 01:00 Potassium 3.3 mEq/L (3.5-5.1) L 04/28/19 01:00 Chloride 110 mEq/L (98-107) H 04/28/19 01:00 Carbon Dioxide 23.8 mEq/L (21.0-31.0) 04/28/19 01:00 Anion Gap 11.5 (7.0-16.0) 04/28/19 01:00 BUN 13 mg/dL (7-25) 04/28/19 01:00 Creatinine 0.5 mg/dL (0.6-1.2) L 04/28/19 01:00 Est GFR ( Amer) > 60.0 ml/min (>90) 04/28/19 01:00 Est GFR (Non-Af Amer) > 60.0 ml/min 04/28/19 01:00 BUN/Creatinine Ratio 26.0 04/28/19 01:00 Glucose 110 mg/dL (70-105) H 04/28/19 01:00 Whole Bld Lactic Acid 1.05 mmol/L (0.60-1.99) 04/28/19 01:05 Calcium 9.5 mg/dL (8.6-10.3) 04/28/19 01:00 Total Bilirubin 1.2 mg/dL (0.3-1.0) H 04/28/19 01:00 AST 95 U/L (13-39) H 04/28/19 01:00 ALT 99 U/L (7-52) H 04/28/19 01:00 Alkaline Phosphatase 104 U/L (34-104) 04/28/19 01:00 Total Protein 8.0 gm/dL (6.0-8.3) 04/28/19 01:00 Albumin 3.9 gm/dL (3.7-5.3) 04/28/19 01:00 Globulin 4.1 gm/dL 04/28/19 01:00 Albumin/Globulin Ratio 1.0 (1.0-1.8) 04/28/19 01:00 Triglycerides 49 mg/dL (<150) 04/28/19 01:00 Cholesterol 95 mg/dL (<200) 04/28/19 01:00 LDL Cholesterol Direct 57 mg/dL (75-193) L 04/28/19 01:00 HDL Cholesterol 31 mg/dL (23-92) 04/28/19 01:00 TSH 1.00 uIU/ml (0.34-5.60) 04/28/19 01:00 Urine Source RANDOM 04/28/19 01:00 Urine Color ORANGE 04/28/19 01:00 Urine Clarity HAZY (CLEAR) 04/28/19 01:00 Urine pH 6.0 (4.6 - 8.0) 04/28/19 01:00 Ur Specific [place] 1.025 (1.005-1.030) 04/28/19 01:00 Urine Protein 30 mg/dL (NEGATIVE) H 04/28/19 01:00 Urine Glucose (UA) NEGATIVE mg/dL (NEGATIVE) 04/28/19 01:00 Urine Ketones TRACE mg/dL (NEGATIVE) 04/28/19 01:00 Urine Blood NEGATIVE (NEGATIVE) 04/28/19 01:00 Urine Nitrate POSITIVE (NEGATIVE) H 04/28/19 01:00 Urine Bilirubin NEGATIVE (NEGATIVE) 04/28/19 01:00 Urine Urobilinogen 4.0 E.U./dL (0.2 - 1.0) H 04/28/19 01:00 Ur Leukocyte Esterase TRACE (NEGATIVE) H 04/28/19 01:00 Urine RBC 0-2 /hpf (0-5) 04/28/19 01:00 Urine WBC 0-2 /hpf (0-5) 04/28/19 01:00 Ur Epithelial Cells FEW /lpf (FEW) 04/28/19 01:00 Urine Bacteria MODERATE /hpf (NONE SEEN) H 04/28/19 01:00 Hepatitis A IgM Ab Negative (Negative) 04/28/19 08:56 Hep Bs Antigen Negative (Negative) 04/28/19 08:56 Hep B Core IgM Ab Negative (Negative) 04/28/19 08:56 Hepatitis C Antibody >11.0 s/co ratio (0.0-0.9) H 04/28/19 08:56 - Physical Exam Vitals and I&O: Vital Signs Temp 97.6 F 05/02/19 06:17 Pulse 87 05/02/19 06:17 Resp 19 05/02/19 06:17 BP 130/73 05/02/19 06:17 Pulse Ox 97 05/02/19 06:17 Intake & Output 05/01/19 05/02/19 05/02/19 18:59 06:59 18:59 Intake Total 300 Balance 300 Intake: Oral 300 Other: # Voids 3 2 # Bowel Movements 1 0 Active Medications: Current Medications Acetaminophen (Tylenol) 650 mg PO Q4HR PRN PRN Reason: Pain or Fever >101 Stop: 06/27/19 12:31 Last Admin: 05/01/19 09:02 Dose: 650 mg Al Hydrox/Mg Hydrox/Simethicone (Maalox) 30 ml PO Q4HR PRN PRN Reason: GI DISTRESS Stop: 06/27/19 03:31 Aripiprazole (Abilify) 20 mg PO DAILY [facility]; Protocol Stop: 07/01/19 09:59 Docusate Sodium (Colace) 100 mg PO DAILY [facility] Stop: 06/28/19 08:59 Last Admin: 05/01/19 08:01 Dose: Not Given Famotidine (Pepcid) 40 mg PO DAILY [facility] Stop: 06/28/19 08:59 Last Admin: 05/01/19 08:01 Dose: Not Given Lactulose (Cephulac) 30 gm PO TID [facility] Stop: 06/27/19 13:59 Last Admin: 05/01/19 14:42 Dose: Not Given Levetiracetam (Keppra) 500 mg PO Q12H [facility] Stop: 06/27/19 12:44 Last Admin: 05/02/19 00:48 Dose: Not Given Multivitamins/Vitamin C (Theragran) 1 tab PO DAILY [facility] Stop: 06/27/19 08:59 Last Admin: 05/01/19 08:01 Dose: Not Given Quetiapine Fumarate (Seroquel) 25 mg PO BID [facility]; Protocol Stop: 05/02/19 16:59 Last Admin: 05/01/19 17:12 Dose: Not Given Zolpidem Tartrate (Ambien) 5 mg PO HS PRN PRN Reason: Insomnia Stop: 06/27/19 03:31 Last Admin: 04/30/19 21:25 Dose: 5 mg General: demented HEENT: NC/AT, PERRLA, EOMI Neck: Supple, No JVD Lungs: CTAB Cardiovascular: RRR, Normal S1, Normal S2 Abdomen: soft, thin, non-distended, positive bowel sound Extremities: excoriation Internal Medicine Assmt/Plan - Assessment Assessment: ASSESSMENT AND PLAN: Leukopenia, hypokalemia, elevated liver function tests, and denies hepatitis, seizure, but severe low back pain. - Plan Plan: PLAN: Continue the patient on lactulose and _rest of___ medications. The patient was given potassium and antibiotic. We will monitor the patient's signs and symptoms for urinary tract infection. We will continue to follow with you.
[2019-05-02] MEDS: Multivitamin w/ Minerals Tab PO SCH (14:29)
[2019-05-02] MEDS: Multivitamin Tab PO SCH (14:29)
[2019-05-02] MEDS: Lactulose 10 Gm/15 mL 30mL UDC PO SCH ×3 (14:29→21:31)
--- NOTE | 2019-05-02 23:00 | Progress Notes ---
DATE: 05/02/2019 SUBJECTIVE: The patient was in wheelchair at one of the doors of the activity room. The patient was heard talking to herself. Earlier, the patient had talked to director telehealth, asking for cigarettes. When the patient saw this filing writer, the patient smiles. When asked why she was upset and agitated to the point where the staff had to call to request emergency IM medication, the patient reported that she was not given her cigarettes. The patient has cigarette smell when she talked. The patient continued to say that she did not have a cigarette. The patient complained that the staff broke her arm, but she put it back. The patient reported that she ate and slept okay. The patient reported that she took her medicine. OBJECTIVE: The patient continued to be calm and pleasant, in front of this filing writer. However, the staff called earlier to report that the patient had been verbally aggressive, yelling and screaming and calling staff names. Staff reported that the patient did get her cigarettes according to the smoke break schedule. Staff reported that the patient has been eating and sleeping okay. The staff reported that the patient continued to refuse to take her medications. An order was given for the patient to receive Zyprexa 10 mg IM x 1 and to increase the Abilify from 10 mg to 20 mg. The patient received a dose of Abilify 20 mg after the order was given. ASSESSMENT: 1. Schizophrenia, chronic paranoid type, and acute exacerbation. 2. 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 3. Impulse control disorder, not otherwise specified. 4. Personality change due to medical condition. PLAN: We will continue the patient on Abilify 20 mg q.a.m. We will discontinue Seroquel since the patient has been refusing to take the medication and the plan is to taper the patient off of Seroquel and to maintain the patient on only 1 antipsychotic medication. We will continue to monitor the patient's response to the medication. We will adjust Abilify as needed to control the patient's psychotic symptoms and behavioral problems. JOB# [id number]
[2019-05-03] MEDS: Lactulose 10 Gm/15 mL 30mL UDC PO SCH ×3 (10:37→21:34)
[2019-05-03] MEDS: Multivitamin Tab PO SCH (10:37)
[2019-05-03] MEDS: Multivitamin w/ Minerals Tab PO SCH (10:37)
--- NOTE | 2019-05-03 12:18 | Internal Medicine Prog Note ---
Internal Medicine Subjective - Subjective Patient seen and examined:: with staff, chart reviewed Patient is:: awake, verbal, interactive Patient Complaints of:: congestion Per staff patient has:: no adverse event, no episodes of fall, poor appetite Internal Medicine Objective - Results Result Diagrams: 04/28/19 01:05 04/28/19 01:00 Recent Labs: Laboratory Last Values WBC 3.7 Th/cmm (4.8-10.8) L 04/28/19 01:05 RBC 4.06 Mil/cmm (3.80-5.20) 04/28/19 01:05 Hgb 13.0 gm/dL (12-16) 04/28/19 01:05 Hct 39.5 % (41.0-60) L 04/28/19 01:05 MCV 97.3 fl (81-100) 04/28/19 01:05 MCH 32.1 pg (27.0-31.0) H 04/28/19 01:05 MCHC Differential 33.0 pg (28.0-36.0) 04/28/19 01:05 RDW 12.8 % (11.5-20.0) 04/28/19 01:05 Plt Count 166 Th/cmm (150-400) 04/28/19 01:05 MPV 7.6 fl 04/28/19 01:05 Neutrophils % 53.8 % (40.0-80.0) 04/28/19 01:05 Lymphocytes % 33.4 % (20.0-50.0) 04/28/19 01:05 Monocytes % 10.9 % (2.0-10.0) H 04/28/19 01:05 Eosinophils % 1.9 % (0.0-5.0) 04/28/19 01:05 Basophils % 0.0 % (0.0-2.0) 04/28/19 01:05 Sodium 142 mEq/L (136-145) 04/28/19 01:00 Potassium 3.3 mEq/L (3.5-5.1) L 04/28/19 01:00 Chloride 110 mEq/L (98-107) H 04/28/19 01:00 Carbon Dioxide 23.8 mEq/L (21.0-31.0) 04/28/19 01:00 Anion Gap 11.5 (7.0-16.0) 04/28/19 01:00 BUN 13 mg/dL (7-25) 04/28/19 01:00 Creatinine 0.5 mg/dL (0.6-1.2) L 04/28/19 01:00 Est GFR ( Amer) > 60.0 ml/min (>90) 04/28/19 01:00 Est GFR (Non-Af Amer) > 60.0 ml/min 04/28/19 01:00 BUN/Creatinine Ratio 26.0 04/28/19 01:00 Glucose 110 mg/dL (70-105) H 04/28/19 01:00 Whole Bld Lactic Acid 1.05 mmol/L (0.60-1.99) 04/28/19 01:05 Calcium 9.5 mg/dL (8.6-10.3) 04/28/19 01:00 Total Bilirubin 1.2 mg/dL (0.3-1.0) H 04/28/19 01:00 AST 95 U/L (13-39) H 04/28/19 01:00 ALT 99 U/L (7-52) H 04/28/19 01:00 Alkaline Phosphatase 104 U/L (34-104) 04/28/19 01:00 Total Protein 8.0 gm/dL (6.0-8.3) 04/28/19 01:00 Albumin 3.9 gm/dL (3.7-5.3) 04/28/19 01:00 Globulin 4.1 gm/dL 04/28/19 01:00 Albumin/Globulin Ratio 1.0 (1.0-1.8) 04/28/19 01:00 Triglycerides 49 mg/dL (<150) 04/28/19 01:00 Cholesterol 95 mg/dL (<200) 04/28/19 01:00 LDL Cholesterol Direct 57 mg/dL (75-193) L 04/28/19 01:00 HDL Cholesterol 31 mg/dL (23-92) 04/28/19 01:00 TSH 1.00 uIU/ml (0.34-5.60) 04/28/19 01:00 Urine Source RANDOM 04/28/19 01:00 Urine Color ORANGE 04/28/19 01:00 Urine Clarity HAZY (CLEAR) 04/28/19 01:00 Urine pH 6.0 (4.6 - 8.0) 04/28/19 01:00 Ur Specific [place] 1.025 (1.005-1.030) 04/28/19 01:00 Urine Protein 30 mg/dL (NEGATIVE) H 04/28/19 01:00 Urine Glucose (UA) NEGATIVE mg/dL (NEGATIVE) 04/28/19 01:00 Urine Ketones TRACE mg/dL (NEGATIVE) 04/28/19 01:00 Urine Blood NEGATIVE (NEGATIVE) 04/28/19 01:00 Urine Nitrate POSITIVE (NEGATIVE) H 04/28/19 01:00 Urine Bilirubin NEGATIVE (NEGATIVE) 04/28/19 01:00 Urine Urobilinogen 4.0 E.U./dL (0.2 - 1.0) H 04/28/19 01:00 Ur Leukocyte Esterase TRACE (NEGATIVE) H 04/28/19 01:00 Urine RBC 0-2 /hpf (0-5) 04/28/19 01:00 Urine WBC 0-2 /hpf (0-5) 04/28/19 01:00 Ur Epithelial Cells FEW /lpf (FEW) 04/28/19 01:00 Urine Bacteria MODERATE /hpf (NONE SEEN) H 04/28/19 01:00 Hepatitis A IgM Ab Negative (Negative) 04/28/19 08:56 Hep Bs Antigen Negative (Negative) 04/28/19 08:56 Hep B Core IgM Ab Negative (Negative) 04/28/19 08:56 Hepatitis C Antibody >11.0 s/co ratio (0.0-0.9) H 04/28/19 08:56 - Physical Exam Vitals and I&O: Vital Signs Temp 97.2 F 05/03/19 06:19 Pulse 95 05/03/19 06:19 Resp 20 05/03/19 06:19 BP 131/99 05/03/19 06:19 Pulse Ox 94 05/03/19 06:19 Intake & Output 05/02/19 05/03/19 05/03/19 18:59 06:59 18:59 Intake Total 120 Output Total 1 Balance 119 Intake: Oral 120 Output: Urine/Stool Mix 1 Other: # Voids 1 Active Medications: Current Medications Acetaminophen (Tylenol) 650 mg PO Q4HR PRN PRN Reason: Pain or Fever >101 Stop: 06/27/19 12:31 Last Admin: 05/02/19 16:01 Dose: 650 mg Al Hydrox/Mg Hydrox/Simethicone (Maalox) 30 ml PO Q4HR PRN PRN Reason: GI DISTRESS Stop: 06/27/19 03:31 Aripiprazole (Abilify) 20 mg PO DAILY [facility]; Protocol Stop: 07/01/19 09:59 Last Admin: 05/03/19 10:37 Dose: Not Given Docusate Sodium (Colace) 100 mg PO DAILY [facility] Stop: 06/28/19 08:59 Last Admin: 05/03/19 10:37 Dose: Not Given Famotidine (Pepcid) 40 mg PO DAILY [facility] Stop: 06/28/19 08:59 Last Admin: 05/03/19 10:37 Dose: Not Given Lactulose (Cephulac) 30 gm PO TID [facility] Stop: 06/27/19 13:59 Last Admin: 05/03/19 10:37 Dose: Not Given Levetiracetam (Keppra) 500 mg PO Q12H [facility] Stop: 06/27/19 12:44 Last Admin: 05/03/19 00:45 Dose: Not Given Multivitamins/Vitamin C (Theragran) 1 tab PO DAILY [facility] Stop: 06/27/19 08:59 Last Admin: 05/03/19 10:37 Dose: Not Given Zolpidem Tartrate (Ambien) 5 mg PO HS PRN PRN Reason: Insomnia Stop: 06/27/19 03:31 Last Admin: 05/02/19 21:12 Dose: 5 mg General: demented HEENT: NC/AT, PERRLA, EOMI Neck: Supple, No JVD Lungs: CTAB Cardiovascular: RRR, Normal S1, Normal S2 Abdomen: soft, thin, non-distended, positive bowel sound Extremities: excoriation Internal Medicine Assmt/Plan - Assessment Assessment: ASSESSMENT AND PLAN: Leukopenia, hypokalemia, elevated liver function tests, and denies hepatitis, seizure, but severe low back pain. - Plan Plan: PLAN: Continue the patient on lactulose and _rest of___ medications. The patient was given potassium and antibiotic. We will monitor the patient's signs and symptoms for urinary tract infection. We will continue to follow with you.
--- NOTE | 2019-05-03 17:35 | Progress Notes ---
DATE: 05/02/2019 PSYCHOLOGY PROGRESS NOTE SUBJECTIVE: The patient is seen up in her wheelchair outside of her room in the hallway. The patient is talking to herself. Staff reports the patient is repeatedly asking for cigarettes and for a smoking break. Staff reports the patient is still easily agitated. A request for emergency medication by the staff to the attending psychiatrist was made. The patient is not taking her p.o. medications. OBJECTIVE: Mood is fluctuating. Affect is broad and animated. Patient's speech is loud and verbally aggressive and pressured. Staff reports the patient continues to yell the names of the staff members repeatedly when she is unable to get her smoke break. The patient denied any hallucinations or delusions. The patient has been intermittently refusing her medications and an order for IM medication for the patient to receive Zyprexa was given. The patient continues to be intrusive with peers and staff. ASSESSMENT AND PLAN: The patient's psychosis and poor impulse control persist. We provided remotivation for the patient to become compliant to stay compliant with her care and treatment, especially compliance with her medication. The patient has been intermittently refusing her medication. The patient is talking to herself and her psychosis persists. We provided reality integration. We provided de- escalation and limit setting. We provided boundary awareness and boundary construction. We encouraged the patient to demonstrate emotional and self-regulation by verbalizing her concerns versus acting out and becoming verbally aggressive by yelling and screaming at the staff. We will monitor closely. We will continue the present treatment and followup in 2 days if the patient remains admitted on the unit. [facility]# [id number] FERNANDO
--- NOTE | 2019-05-03 20:39 | Progress Notes ---
DATE: 05/03/2019 SUBJECTIVE: The patient was sitting in a wheelchair in front of the nursing station. The patient continued to be cheerful when approached. The patient stated that one of the staff here needed to go home because he has been working so hard. The patient continued to ramble. The patient stated that she is the last of the [employer] and they are looking for her. The patient reported that she has been eating and sleeping okay. The patient reported that she is getting her cigarettes and denied having any behavioral problem. The lunch tray came in, so the patient hurried into the dining room to get her lunch. When this jingle writer and the staff approached the patient to give her, her medication, the patient immediately became agitated and stated that we wanted to cause her to have diarrhea if she will take the medication. The patient stated that she will have to use the bathroom. The patient stopped eating and remained agitated and refused to take her medication. Therefore, the medication was put on hold and the patient was encouraged to finish her lunch and we will try to give the patient when the patient goes out for a smoke break. OBJECTIVE: The patient continued to have flight of ideas, but not so much of pressured speech. The patient continued to be quite psychotic with a lot of delusions. The patient continued to be noncompliant with taking her medications. The staff reported that the patient has been eating and sleeping okay. ASSESSMENT: 1. 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 2. Psychotic disorder and mood disorder, depressed due to medical condition. 3. Impulse control disorder, not otherwise specified. 4. Personality change due to medical condition. PLAN: We will discontinue Abilify. We will start the patient on Zyprexa Zydis 10 mg p.o. q.p.m. Since Zyprexa comes in injectable form, therefore, it would be more convenient if the patient had recurrent episodes of agitation and aggression to give the same medication that is in injectable form. We will monitor the patient's response to the medication. JOB# [id number] FERNANDO
[2019-05-04] MEDS: Multivitamin w/ Minerals Tab PO SCH (09:35)
[2019-05-04] MEDS: Multivitamin Tab PO SCH (09:35)
[2019-05-04] MEDS: Lactulose 10 Gm/15 mL 30mL UDC PO SCH ×3 (09:35→21:05)
--- NOTE | 2019-05-04 12:22 | Internal Medicine Prog Note ---
Internal Medicine Subjective - Subjective Patient seen and examined:: with staff, chart reviewed Patient is:: awake, verbal, interactive Patient Complaints of:: congestion Per staff patient has:: no adverse event, no episodes of fall, poor appetite Internal Medicine Objective - Results Result Diagrams: 04/28/19 01:05 04/28/19 01:00 Recent Labs: Laboratory Last Values WBC 3.7 Th/cmm (4.8-10.8) L 04/28/19 01:05 RBC 4.06 Mil/cmm (3.80-5.20) 04/28/19 01:05 Hgb 13.0 gm/dL (12-16) 04/28/19 01:05 Hct 39.5 % (41.0-60) L 04/28/19 01:05 MCV 97.3 fl (81-100) 04/28/19 01:05 MCH 32.1 pg (27.0-31.0) H 04/28/19 01:05 MCHC Differential 33.0 pg (28.0-36.0) 04/28/19 01:05 RDW 12.8 % (11.5-20.0) 04/28/19 01:05 Plt Count 166 Th/cmm (150-400) 04/28/19 01:05 MPV 7.6 fl 04/28/19 01:05 Neutrophils % 53.8 % (40.0-80.0) 04/28/19 01:05 Lymphocytes % 33.4 % (20.0-50.0) 04/28/19 01:05 Monocytes % 10.9 % (2.0-10.0) H 04/28/19 01:05 Eosinophils % 1.9 % (0.0-5.0) 04/28/19 01:05 Basophils % 0.0 % (0.0-2.0) 04/28/19 01:05 Sodium 142 mEq/L (136-145) 04/28/19 01:00 Potassium 3.3 mEq/L (3.5-5.1) L 04/28/19 01:00 Chloride 110 mEq/L (98-107) H 04/28/19 01:00 Carbon Dioxide 23.8 mEq/L (21.0-31.0) 04/28/19 01:00 Anion Gap 11.5 (7.0-16.0) 04/28/19 01:00 BUN 13 mg/dL (7-25) 04/28/19 01:00 Creatinine 0.5 mg/dL (0.6-1.2) L 04/28/19 01:00 Est GFR ( Amer) > 60.0 ml/min (>90) 04/28/19 01:00 Est GFR (Non-Af Amer) > 60.0 ml/min 04/28/19 01:00 BUN/Creatinine Ratio 26.0 04/28/19 01:00 Glucose 110 mg/dL (70-105) H 04/28/19 01:00 Whole Bld Lactic Acid 1.05 mmol/L (0.60-1.99) 04/28/19 01:05 Calcium 9.5 mg/dL (8.6-10.3) 04/28/19 01:00 Total Bilirubin 1.2 mg/dL (0.3-1.0) H 04/28/19 01:00 AST 95 U/L (13-39) H 04/28/19 01:00 ALT 99 U/L (7-52) H 04/28/19 01:00 Alkaline Phosphatase 104 U/L (34-104) 04/28/19 01:00 Total Protein 8.0 gm/dL (6.0-8.3) 04/28/19 01:00 Albumin 3.9 gm/dL (3.7-5.3) 04/28/19 01:00 Globulin 4.1 gm/dL 04/28/19 01:00 Albumin/Globulin Ratio 1.0 (1.0-1.8) 04/28/19 01:00 Triglycerides 49 mg/dL (<150) 04/28/19 01:00 Cholesterol 95 mg/dL (<200) 04/28/19 01:00 LDL Cholesterol Direct 57 mg/dL (75-193) L 04/28/19 01:00 HDL Cholesterol 31 mg/dL (23-92) 04/28/19 01:00 TSH 1.00 uIU/ml (0.34-5.60) 04/28/19 01:00 Urine Source RANDOM 04/28/19 01:00 Urine Color ORANGE 04/28/19 01:00 Urine Clarity HAZY (CLEAR) 04/28/19 01:00 Urine pH 6.0 (4.6 - 8.0) 04/28/19 01:00 Ur Specific [place] 1.025 (1.005-1.030) 04/28/19 01:00 Urine Protein 30 mg/dL (NEGATIVE) H 04/28/19 01:00 Urine Glucose (UA) NEGATIVE mg/dL (NEGATIVE) 04/28/19 01:00 Urine Ketones TRACE mg/dL (NEGATIVE) 04/28/19 01:00 Urine Blood NEGATIVE (NEGATIVE) 04/28/19 01:00 Urine Nitrate POSITIVE (NEGATIVE) H 04/28/19 01:00 Urine Bilirubin NEGATIVE (NEGATIVE) 04/28/19 01:00 Urine Urobilinogen 4.0 E.U./dL (0.2 - 1.0) H 04/28/19 01:00 Ur Leukocyte Esterase TRACE (NEGATIVE) H 04/28/19 01:00 Urine RBC 0-2 /hpf (0-5) 04/28/19 01:00 Urine WBC 0-2 /hpf (0-5) 04/28/19 01:00 Ur Epithelial Cells FEW /lpf (FEW) 04/28/19 01:00 Urine Bacteria MODERATE /hpf (NONE SEEN) H 04/28/19 01:00 Levetiracetam 11.7 ug/mL (10.0-40.0) 04/28/19 01:05 RPR NONREACTIVE (NONREACTIVE) 04/28/19 01:05 Hepatitis A IgM Ab Negative (Negative) 04/28/19 08:56 Hep Bs Antigen Negative (Negative) 04/28/19 08:56 Hep B Core IgM Ab Negative (Negative) 04/28/19 08:56 Hepatitis C Antibody >11.0 s/co ratio (0.0-0.9) H 04/28/19 08:56 HIV-1 RNA Qnt (RT-PCR) TNP 04/28/19 11:08 - Physical Exam Vitals and I&O: Vital Signs Temp 98.2 F 05/04/19 06:16 Pulse 88 05/04/19 06:16 Resp 19 05/04/19 06:16 BP 151/75 05/04/19 06:16 Pulse Ox 94 05/04/19 06:16 Intake & Output 05/03/19 05/04/19 05/04/19 18:59 06:59 18:59 Intake Total 360 Balance 360 Intake: Oral 360 Other: # Voids 1 # Bowel Movements 0 Stool Characteristics Soft Active Medications: Current Medications Acetaminophen (Tylenol) 650 mg PO Q4HR PRN PRN Reason: Pain or Fever >101 Stop: 06/27/19 12:31 Last Admin: 05/02/19 16:01 Dose: 650 mg Al Hydrox/Mg Hydrox/Simethicone (Maalox) 30 ml PO Q4HR PRN PRN Reason: GI DISTRESS Stop: 06/27/19 03:31 Docusate Sodium (Colace) 100 mg PO DAILY [facility] Stop: 06/28/19 08:59 Last Admin: 05/04/19 09:35 Dose: 100 mg Famotidine (Pepcid) 40 mg PO DAILY [facility] Stop: 06/28/19 08:59 Last Admin: 05/04/19 09:35 Dose: 40 mg Lactulose (Cephulac) 30 gm PO TID [facility] Stop: 06/27/19 13:59 Last Admin: 05/04/19 09:35 Dose: 30 gm Levetiracetam (Keppra) 500 mg PO Q12H [facility] Stop: 06/27/19 12:44 Last Admin: 05/04/19 00:45 Dose: Not Given Lorazepam (Ativan) 0.5 mg PO Q6HR PRN; Protocol PRN Reason: Agitation Stop: 07/03/19 10:24 Last Admin: 05/04/19 10:52 Dose: 0.5 mg Multivitamins/Vitamin C (Theragran) 1 tab PO DAILY [facility] Stop: 06/27/19 08:59 Last Admin: 05/04/19 09:35 Dose: 1 tab Olanzapine (Zyprexa Zydis) 10 mg PO HS [facility]; Protocol Stop: 07/03/19 20:59 Zolpidem Tartrate (Ambien) 5 mg PO HS PRN PRN Reason: Insomnia Stop: 06/27/19 03:31 Last Admin: 05/03/19 20:20 Dose: 5 mg General: demented HEENT: NC/AT, PERRLA, EOMI Neck: Supple, No JVD Lungs: CTAB Cardiovascular: RRR, Normal S1, Normal S2 Abdomen: soft, thin, non-distended, positive bowel sound Extremities: excoriation Internal Medicine Assmt/Plan - Assessment Assessment: ASSESSMENT AND PLAN: Leukopenia, hypokalemia, elevated liver function tests, and denies hepatitis, seizure, but severe low back pain. - Plan Plan: PLAN: Continue the patient on lactulose and _rest of___ medications. The patient was given potassium and antibiotic. We will monitor the patient's signs and symptoms for urinary tract infection. We will continue to follow with you. Nutritional Asmnt/Malnutr-PDOC - Dietary Evaluation Malnutrition Findings (Please click <Entered> for more info): Nutritional Asmnt/Malnutrition Start: 05/03/19 19: 11 Text: Status: Active Freq: Protocol: Document 05/03/19 19:11 [email or web address] (Rec: 05/03/19 19:51 [email or web address]) Nutritional Asmnt/Malnutrition Patient General Information Nutritional Screening Moderate Risk Pertinent Medical Hx/Surgical Hx GERD Subjective Information Pt A&O x 1 to self & time. Pt with poor appetite, refusing some meds, per chart. PO intakes varied, 50-100%. Current Diet Order/ Nutrition Support Mechanical Soft/Chopped Patient / S.O Not Indicated Pertinent Medications docusate sodium, famotidine, lactulose, MVI Pertinent Labs K 3.3, Glucose 110, total bilirubin 1.2, AST 95, ALT 99 Nutritional Hx/Data Height 1.63 m Height (Calculated Centimeters) 162.6 Current Weight (lbs) 72.575 kg Weight (Calculated Kilograms) 72.6 Weight (Calculated Grams) 17377.8 Andrews Body Weight 120 lb % Andrews Body Weight 133 Body Mass Index (BMI) 27.4 Weight Status Overweight GI Symptoms GI Symptoms None Last BM 04/29 (x 1) Skin Integrity/Comment: Edema: non-pitting 2+ LLE, pitting 2+ RLE Joselo Score: 18 Nutrition Risk: adequate Estimated Nutritional Goals BEE in Kcals: Using Current wt Calories/Kcals/Kg 20-25 Kcals Calculated 5443-0672 Protein: Using Current wt Protein g/k-1.25 Protein Calculated 73-91 Fluid: ml [id number] Nutritional Problem 1. Problem Problem Predicted sub-optimal energy intake related to decreased appetite as evidenced by PO intakes varied, pt consuming < 75% of some meals. Intervention/Recommendation Recommendations by RD Add supplement feedings Comments continue current diet rx per MD. Suggest add Ensure Pudding TID to optimize nutritional intakes. Expected Outcomes/Goals Expected Outcomes/Goals PO intakes >/=75% average of meals and/or PO supplement. Electronically Signed by: Vane Camejo, MPH, RDN Clinical Dietitian 05/03/19 7:53 PM
[2019-05-04] MEDS: OLANZapine 10 mg Oral Disintegrating Tab PO SCH (21:05)
--- NOTE | 2019-05-04 23:26 | Progress Notes ---
DATE: 05/04/2019 PSYCHOLOGY PROGRESS NOTE SUBJECTIVE: The patient is seen outside of the cafeteria/activity area in the outdoor smoke break area. The patient is guarded and stated that she did not want to talk to this advertising copy writer. Staff reports the patient has been refusing medication. The attending psychiatrist has changed the patient's medication according to record review. OBJECTIVE: Mood is irritable. Affect is broad. Thought process includes flight of ideas. There is some evidence of paranoid ideation. The patient did not answer questions about auditory or visual hallucinations or delusions. The patient is noncompliant with medication. ASSESSMENT AND PLAN: The patient's psychosis persists as well as the patient's noncompliance with treatment. The patient is declining to discuss any of the treatment issues with this advertising copy writer. We will provide remotivation for the patient to become compliant and stay compliant with all aspects of her care and treatment. Follow up in 2 days is indicated if the patient remains on the unit; however, to continue psychology services, this advertising copy writer will reevaluate and reassess the patient's capacity to benefit from and willingness to participate in this type of treatment. This will be discussed with the attending psychiatrist. JOB# [id number] FERNANDO
--- NOTE | 2019-05-05 05:12 | Progress Notes ---
DATE: 05/04/2019 SUBJECTIVE: The patient was in a wheelchair by the door of activity room. The patient continued to be pleasant and cheerful, smiling and laughing and wanted to do fist pump with some of the staff as they go by. The patient continued to be quite psychotic with rambling speech and disorganized thoughts and flight of ideas. The patient stated that one of the staff here has a baby and she made a gesture of how big the patient was. The patient reported that she still has not gotten her cigarettes. When asked if she has been behaving herself, the patient stated yes. The patient tend to raise her voice when she did not like certain question. OBJECTIVE: The patient continued to be pleasant and cheerful with this software writer. The staff reported that the patient continued to have unpredictable episodes of being agitated and aggressive, yelling and screaming and not following direction. The staff reported that she refused to take medication from her nurse. However, she took the medication when the medications were offered to her by male staff. Staff reported that the patient does not have Ativan p.r.n. for her. ASSESSMENT: 1. 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 2. Psychotic disorder and mood disorder, depressed due to medical condition. 3. Impulse control disorder, not otherwise specified. 4. Personality change due to medical condition. PLAN: We will continue the patient on Zyprexa 10 mg, Ativan 0.5 mg p.o. q. 6 hours p.r.n. for anxiety and agitation. We will monitor the patient's response to the Zyprexa. We will change the Zyprexa to Zydis. JOB# [id number] FERNANDO
[2019-05-05] MEDS: Lactulose 10 Gm/15 mL 30mL UDC PO SCH ×3 (08:52→21:14)
[2019-05-05] MEDS: Multivitamin Tab PO SCH (08:54)
[2019-05-05] MEDS: Multivitamin w/ Minerals Tab PO SCH (08:55)
--- NOTE | 2019-05-05 12:19 | Internal Medicine Prog Note ---
Internal Medicine Subjective - Subjective Patient seen and examined:: with staff, chart reviewed Patient is:: awake, verbal, interactive Patient Complaints of:: congestion Per staff patient has:: no adverse event, no episodes of fall, poor appetite Internal Medicine Objective - Results Result Diagrams: 04/28/19 01:05 04/28/19 01:00 Recent Labs: Laboratory Last Values WBC 3.7 Th/cmm (4.8-10.8) L 04/28/19 01:05 RBC 4.06 Mil/cmm (3.80-5.20) 04/28/19 01:05 Hgb 13.0 gm/dL (12-16) 04/28/19 01:05 Hct 39.5 % (41.0-60) L 04/28/19 01:05 MCV 97.3 fl (81-100) 04/28/19 01:05 MCH 32.1 pg (27.0-31.0) H 04/28/19 01:05 MCHC Differential 33.0 pg (28.0-36.0) 04/28/19 01:05 RDW 12.8 % (11.5-20.0) 04/28/19 01:05 Plt Count 166 Th/cmm (150-400) 04/28/19 01:05 MPV 7.6 fl 04/28/19 01:05 Neutrophils % 53.8 % (40.0-80.0) 04/28/19 01:05 Lymphocytes % 33.4 % (20.0-50.0) 04/28/19 01:05 Monocytes % 10.9 % (2.0-10.0) H 04/28/19 01:05 Eosinophils % 1.9 % (0.0-5.0) 04/28/19 01:05 Basophils % 0.0 % (0.0-2.0) 04/28/19 01:05 Sodium 142 mEq/L (136-145) 04/28/19 01:00 Potassium 3.3 mEq/L (3.5-5.1) L 04/28/19 01:00 Chloride 110 mEq/L (98-107) H 04/28/19 01:00 Carbon Dioxide 23.8 mEq/L (21.0-31.0) 04/28/19 01:00 Anion Gap 11.5 (7.0-16.0) 04/28/19 01:00 BUN 13 mg/dL (7-25) 04/28/19 01:00 Creatinine 0.5 mg/dL (0.6-1.2) L 04/28/19 01:00 Est GFR ( Amer) > 60.0 ml/min (>90) 04/28/19 01:00 Est GFR (Non-Af Amer) > 60.0 ml/min 04/28/19 01:00 BUN/Creatinine Ratio 26.0 04/28/19 01:00 Glucose 110 mg/dL (70-105) H 04/28/19 01:00 Whole Bld Lactic Acid 1.05 mmol/L (0.60-1.99) 04/28/19 01:05 Calcium 9.5 mg/dL (8.6-10.3) 04/28/19 01:00 Total Bilirubin 1.2 mg/dL (0.3-1.0) H 04/28/19 01:00 AST 95 U/L (13-39) H 04/28/19 01:00 ALT 99 U/L (7-52) H 04/28/19 01:00 Alkaline Phosphatase 104 U/L (34-104) 04/28/19 01:00 Total Protein 8.0 gm/dL (6.0-8.3) 04/28/19 01:00 Albumin 3.9 gm/dL (3.7-5.3) 04/28/19 01:00 Globulin 4.1 gm/dL 04/28/19 01:00 Albumin/Globulin Ratio 1.0 (1.0-1.8) 04/28/19 01:00 Triglycerides 49 mg/dL (<150) 04/28/19 01:00 Cholesterol 95 mg/dL (<200) 04/28/19 01:00 LDL Cholesterol Direct 57 mg/dL (75-193) L 04/28/19 01:00 HDL Cholesterol 31 mg/dL (23-92) 04/28/19 01:00 TSH 1.00 uIU/ml (0.34-5.60) 04/28/19 01:00 Urine Source RANDOM 04/28/19 01:00 Urine Color ORANGE 04/28/19 01:00 Urine Clarity HAZY (CLEAR) 04/28/19 01:00 Urine pH 6.0 (4.6 - 8.0) 04/28/19 01:00 Ur Specific [place] 1.025 (1.005-1.030) 04/28/19 01:00 Urine Protein 30 mg/dL (NEGATIVE) H 04/28/19 01:00 Urine Glucose (UA) NEGATIVE mg/dL (NEGATIVE) 04/28/19 01:00 Urine Ketones TRACE mg/dL (NEGATIVE) 04/28/19 01:00 Urine Blood NEGATIVE (NEGATIVE) 04/28/19 01:00 Urine Nitrate POSITIVE (NEGATIVE) H 04/28/19 01:00 Urine Bilirubin NEGATIVE (NEGATIVE) 04/28/19 01:00 Urine Urobilinogen 4.0 E.U./dL (0.2 - 1.0) H 04/28/19 01:00 Ur Leukocyte Esterase TRACE (NEGATIVE) H 04/28/19 01:00 Urine RBC 0-2 /hpf (0-5) 04/28/19 01:00 Urine WBC 0-2 /hpf (0-5) 04/28/19 01:00 Ur Epithelial Cells FEW /lpf (FEW) 04/28/19 01:00 Urine Bacteria MODERATE /hpf (NONE SEEN) H 04/28/19 01:00 Levetiracetam 11.7 ug/mL (10.0-40.0) 04/28/19 01:05 RPR NONREACTIVE (NONREACTIVE) 04/28/19 01:05 Hepatitis A IgM Ab Negative (Negative) 04/28/19 08:56 Hep Bs Antigen Negative (Negative) 04/28/19 08:56 Hep B Core IgM Ab Negative (Negative) 04/28/19 08:56 Hepatitis C Antibody >11.0 s/co ratio (0.0-0.9) H 04/28/19 08:56 HIV-1 RNA Qnt (RT-PCR) TNP 04/28/19 11:08 - Physical Exam Vitals and I&O: Vital Signs Temp 97.3 F 05/05/19 06:24 Pulse 96 05/05/19 06:24 Resp 19 05/05/19 06:24 BP 109/78 05/05/19 06:24 Pulse Ox 99 05/05/19 06:24 Intake & Output 05/04/19 05/05/19 05/05/19 18:59 06:59 18:59 Intake Total 120 Output Total 1 Balance -1 120 Intake: Oral 120 Output: Other 1 Other: # Voids 3 # Bowel Movements 2 Stool Characteristics Soft Formed Active Medications: Current Medications Acetaminophen (Tylenol) 650 mg PO Q4HR PRN PRN Reason: Pain or Fever >101 Stop: 06/27/19 12:31 Last Admin: 05/02/19 16:01 Dose: 650 mg Al Hydrox/Mg Hydrox/Simethicone (Maalox) 30 ml PO Q4HR PRN PRN Reason: GI DISTRESS Stop: 06/27/19 03:31 Docusate Sodium (Colace) 100 mg PO DAILY EILEEN Stop: 06/28/19 08:59 Last Admin: 05/05/19 08:54 Dose: 100 mg Famotidine (Pepcid) 40 mg PO DAILY EILEEN Stop: 06/28/19 08:59 Last Admin: 05/05/19 08:50 Dose: 40 mg Lactulose (Cephulac) 30 gm PO TID EILEEN Stop: 06/27/19 13:59 Last Admin: 05/05/19 08:52 Dose: 30 gm Levetiracetam (Keppra) 500 mg PO Q12H EILEEN Stop: 06/27/19 12:44 Last Admin: 05/05/19 00:45 Dose: Not Given Lorazepam (Ativan) 0.5 mg PO Q6HR PRN; Protocol PRN Reason: Agitation Stop: 07/03/19 10:24 Last Admin: 05/04/19 21:05 Dose: 0.5 mg Multivitamins/Vitamin C (Theragran) 1 tab PO DAILY EILEEN Stop: 06/27/19 08:59 Last Admin: 05/05/19 08:54 Dose: 1 tab Olanzapine (Zyprexa Zydis) 10 mg PO HS EILEEN; Protocol Stop: 07/03/19 20:59 Last Admin: 05/04/19 21:05 Dose: 10 mg Zolpidem Tartrate (Ambien) 5 mg PO HS PRN PRN Reason: Insomnia Stop: 06/27/19 03:31 Last Admin: 05/04/19 21:05 Dose: 5 mg General: demented HEENT: NC/AT, PERRLA, EOMI Neck: Supple, No JVD Lungs: CTAB Cardiovascular: RRR, Normal S1, Normal S2 Abdomen: soft, thin, non-distended, positive bowel sound Extremities: excoriation Internal Medicine Assmt/Plan - Assessment Assessment: ASSESSMENT AND PLAN: Leukopenia, hypokalemia, elevated liver function tests, and denies hepatitis, seizure, but severe low back pain. - Plan Plan: PLAN: Continue the patient on lactulose and _rest of___ medications. The patient was given potassium and antibiotic. We will monitor the patient's signs and symptoms for urinary tract infection. We will continue to follow with you. Nutritional Asmnt/Malnutr-PDOC - Dietary Evaluation Malnutrition Findings (Please click <Entered> for more info): Nutritional Asmnt/Malnutrition Start: 05/03/19 19: 11 Text: Status: Active Freq: Protocol: Document 05/03/19 19:11 [email or web address] (Rec: 05/03/19 19:51 [email or web address]) Nutritional Asmnt/Malnutrition Patient General Information Nutritional Screening Moderate Risk Pertinent Medical Hx/Surgical Hx GERD Subjective Information Pt A&O x 1 to self & time. Pt with poor appetite, refusing some meds, per chart. PO intakes varied, 50-100%. Current Diet Order/ Nutrition Support Mechanical Soft/Chopped Patient / S.O Not Indicated Pertinent Medications docusate sodium, famotidine, lactulose, MVI Pertinent Labs K 3.3, Glucose 110, total bilirubin 1.2, AST 95, ALT 99 Nutritional Hx/Data Height 1.63 m Height (Calculated Centimeters) 162.6 Current Weight (lbs) 72.575 kg Weight (Calculated Kilograms) 72.6 Weight (Calculated Grams) 58329.8 [place] Body Weight 120 lb % [place] Body Weight 133 Body Mass Index (BMI) 27.4 Weight Status Overweight GI Symptoms GI Symptoms None Last BM 04/29 (x 1) Skin Integrity/Comment: Edema: non-pitting 2+ LLE, pitting 2+ RLE Joselo Score: 18 Nutrition Risk: adequate Estimated Nutritional Goals BEE in Kcals: Using Current wt Calories/Kcals/Kg 20-25 Kcals Calculated 4367-7325 Protein: Using Current wt Protein g/k-1.25 Protein Calculated 73-91 Fluid: ml 6826-9296 Nutritional Problem 1. Problem Problem Predicted sub-optimal energy intake related to decreased appetite as evidenced by PO intakes varied, pt consuming < 75% of some meals. Intervention/Recommendation Recommendations by RD Add supplement feedings Comments continue current diet rx per MD. Suggest add Ensure Pudding TID to optimize nutritional intakes. Expected Outcomes/Goals Expected Outcomes/Goals PO intakes >/=75% average of meals and/or PO supplement. Electronically Signed by: Vane Camejo, MPH, RDN Clinical Dietitian 05/03/19 7:53 PM
[2019-05-05] MEDS: OLANZapine 10 mg Oral Disintegrating Tab PO SCH (21:58)
--- NOTE | 2019-05-06 03:14 | Progress Notes ---
DATE: 05/05/2019 SUBJECTIVE: The patient came out of her room propelling her wheelchair with her feet. The patient continued to be pleasant with this television writer. The patient continued to ramble, talking about different things, and talking about when she was a little child. The patient talked about picture of hands on the wall and said that there were her hands and talking about the building that she did not want and she gave someone a dollar to take over that building. The patient reported that she has been eating and sleeping okay. When asked if she has been taking her medication, the stated "yes." OBJECTIVE: The patient continued to be pleasant with this television writer. The patient continued to be quite psychotic. The staff reported that the patient continued to be selective with her medications. At times staff were able to give her medications when bargain with her, asking her to take medication in exchange for cigarettes. Staff reported that patient took her Zyprexa last evening. The staff reported that the patient refused to take her Keppra. The staff reported that the patient appeared to be somewhat better, not as agitated as the day before. The staff had to give the patient a dose of Ativan last evening. The staff reported that the patient continued to be eating and sleeping okay. ASSESSMENT: 1. 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 2. Psychotic disorder and mood disorder, depressed due to medical condition. 3. Impulse control disorder, not otherwise specified. 4. Personality change due to medical condition. PLAN: We will continue the patient on current Zyprexa, Ativan and Ambien. We will see how the patient will respond to Zyprexa when she takes them more consistently. If the patient continued to show not much improvement on the 10 mg, we will increase to 15 mg. [facility]# [id number] FERNANDO
[2019-05-06] MEDS: Multivitamin w/ Minerals Tab PO SCH (08:57)
[2019-05-06] MEDS: Multivitamin Tab PO SCH (08:57)
[2019-05-06] MEDS: Lactulose 10 Gm/15 mL 30mL UDC PO SCH ×3 (08:58→21:46)
--- NOTE | 2019-05-06 12:09 | Internal Medicine Prog Note ---
Internal Medicine Subjective - Subjective Patient seen and examined:: with staff, chart reviewed Patient is:: awake, verbal, interactive Patient Complaints of:: congestion Per staff patient has:: no adverse event, no episodes of fall, poor appetite Internal Medicine Objective - Results Result Diagrams: 04/28/19 01:05 04/28/19 01:00 Recent Labs: Laboratory Last Values WBC 3.7 Th/cmm (4.8-10.8) L 04/28/19 01:05 RBC 4.06 Mil/cmm (3.80-5.20) 04/28/19 01:05 Hgb 13.0 gm/dL (12-16) 04/28/19 01:05 Hct 39.5 % (41.0-60) L 04/28/19 01:05 MCV 97.3 fl (81-100) 04/28/19 01:05 MCH 32.1 pg (27.0-31.0) H 04/28/19 01:05 MCHC Differential 33.0 pg (28.0-36.0) 04/28/19 01:05 RDW 12.8 % (11.5-20.0) 04/28/19 01:05 Plt Count 166 Th/cmm (150-400) 04/28/19 01:05 MPV 7.6 fl 04/28/19 01:05 Neutrophils % 53.8 % (40.0-80.0) 04/28/19 01:05 Lymphocytes % 33.4 % (20.0-50.0) 04/28/19 01:05 Monocytes % 10.9 % (2.0-10.0) H 04/28/19 01:05 Eosinophils % 1.9 % (0.0-5.0) 04/28/19 01:05 Basophils % 0.0 % (0.0-2.0) 04/28/19 01:05 Sodium 142 mEq/L (136-145) 04/28/19 01:00 Potassium 3.3 mEq/L (3.5-5.1) L 04/28/19 01:00 Chloride 110 mEq/L (98-107) H 04/28/19 01:00 Carbon Dioxide 23.8 mEq/L (21.0-31.0) 04/28/19 01:00 Anion Gap 11.5 (7.0-16.0) 04/28/19 01:00 BUN 13 mg/dL (7-25) 04/28/19 01:00 Creatinine 0.5 mg/dL (0.6-1.2) L 04/28/19 01:00 Est GFR ( Amer) > 60.0 ml/min (>90) 04/28/19 01:00 Est GFR (Non-Af Amer) > 60.0 ml/min 04/28/19 01:00 BUN/Creatinine Ratio 26.0 04/28/19 01:00 Glucose 110 mg/dL (70-105) H 04/28/19 01:00 Whole Bld Lactic Acid 1.05 mmol/L (0.60-1.99) 04/28/19 01:05 Calcium 9.5 mg/dL (8.6-10.3) 04/28/19 01:00 Total Bilirubin 1.2 mg/dL (0.3-1.0) H 04/28/19 01:00 AST 95 U/L (13-39) H 04/28/19 01:00 ALT 99 U/L (7-52) H 04/28/19 01:00 Alkaline Phosphatase 104 U/L (34-104) 04/28/19 01:00 Total Protein 8.0 gm/dL (6.0-8.3) 04/28/19 01:00 Albumin 3.9 gm/dL (3.7-5.3) 04/28/19 01:00 Globulin 4.1 gm/dL 04/28/19 01:00 Albumin/Globulin Ratio 1.0 (1.0-1.8) 04/28/19 01:00 Triglycerides 49 mg/dL (<150) 04/28/19 01:00 Cholesterol 95 mg/dL (<200) 04/28/19 01:00 LDL Cholesterol Direct 57 mg/dL (75-193) L 04/28/19 01:00 HDL Cholesterol 31 mg/dL (23-92) 04/28/19 01:00 TSH 1.00 uIU/ml (0.34-5.60) 04/28/19 01:00 Urine Source RANDOM 04/28/19 01:00 Urine Color ORANGE 04/28/19 01:00 Urine Clarity HAZY (CLEAR) 04/28/19 01:00 Urine pH 6.0 (4.6 - 8.0) 04/28/19 01:00 Ur Specific [place] 1.025 (1.005-1.030) 04/28/19 01:00 Urine Protein 30 mg/dL (NEGATIVE) H 04/28/19 01:00 Urine Glucose (UA) NEGATIVE mg/dL (NEGATIVE) 04/28/19 01:00 Urine Ketones TRACE mg/dL (NEGATIVE) 04/28/19 01:00 Urine Blood NEGATIVE (NEGATIVE) 04/28/19 01:00 Urine Nitrate POSITIVE (NEGATIVE) H 04/28/19 01:00 Urine Bilirubin NEGATIVE (NEGATIVE) 04/28/19 01:00 Urine Urobilinogen 4.0 E.U./dL (0.2 - 1.0) H 04/28/19 01:00 Ur Leukocyte Esterase TRACE (NEGATIVE) H 04/28/19 01:00 Urine RBC 0-2 /hpf (0-5) 04/28/19 01:00 Urine WBC 0-2 /hpf (0-5) 04/28/19 01:00 Ur Epithelial Cells FEW /lpf (FEW) 04/28/19 01:00 Urine Bacteria MODERATE /hpf (NONE SEEN) H 04/28/19 01:00 Levetiracetam 11.7 ug/mL (10.0-40.0) 04/28/19 01:05 RPR NONREACTIVE (NONREACTIVE) 04/28/19 01:05 Hepatitis A IgM Ab Negative (Negative) 04/28/19 08:56 Hep Bs Antigen Negative (Negative) 04/28/19 08:56 Hep B Core IgM Ab Negative (Negative) 04/28/19 08:56 Hepatitis C Antibody >11.0 s/co ratio (0.0-0.9) H 04/28/19 08:56 HIV-1 RNA Qnt (RT-PCR) TNP 04/28/19 11:08 - Physical Exam Vitals and I&O: Vital Signs Temp 97.1 F 05/06/19 06:03 Pulse 70 05/06/19 06:03 Resp 18 05/06/19 06:03 BP 117/67 05/06/19 06:03 Pulse Ox 98 05/06/19 06:03 Intake & Output 05/05/19 05/06/19 05/06/19 18:59 06:59 18:59 Intake Total 120 Balance 120 Intake: Oral 120 Other: # Voids 3 3 # Bowel Movements 1 Stool Characteristics Formed Active Medications: Current Medications Acetaminophen (Tylenol) 650 mg PO Q4HR PRN PRN Reason: Pain or Fever >101 Stop: 06/27/19 12:31 Last Admin: 05/02/19 16:01 Dose: 650 mg Al Hydrox/Mg Hydrox/Simethicone (Maalox) 30 ml PO Q4HR PRN PRN Reason: GI DISTRESS Stop: 06/27/19 03:31 Docusate Sodium (Colace) 100 mg PO DAILY EILEEN Stop: 06/28/19 08:59 Last Admin: 05/06/19 08:57 Dose: 100 mg Famotidine (Pepcid) 40 mg PO DAILY EILEEN Stop: 06/28/19 08:59 Last Admin: 05/06/19 08:58 Dose: 40 mg Lactulose (Cephulac) 30 gm PO TID EILEEN Stop: 06/27/19 13:59 Last Admin: 05/06/19 08:58 Dose: Not Given Levetiracetam (Keppra) 500 mg PO Q12H EILEEN Stop: 06/27/19 12:44 Last Admin: 05/06/19 00:45 Dose: Not Given Lorazepam (Ativan) 0.5 mg PO Q6HR PRN; Protocol PRN Reason: Agitation Stop: 07/03/19 10:24 Last Admin: 05/04/19 21:05 Dose: 0.5 mg Multivitamins/Vitamin C (Theragran) 1 tab PO DAILY EILEEN Stop: 06/27/19 08:59 Last Admin: 05/06/19 08:57 Dose: 1 tab Olanzapine (Zyprexa Zydis) 10 mg PO HS EILEEN; Protocol Stop: 07/03/19 20:59 Last Admin: 05/05/19 21:58 Dose: 10 mg Zolpidem Tartrate (Ambien) 5 mg PO HS PRN PRN Reason: Insomnia Stop: 06/27/19 03:31 Last Admin: 05/04/19 21:05 Dose: 5 mg General: demented HEENT: NC/AT, PERRLA, EOMI Neck: Supple, No JVD Lungs: CTAB Cardiovascular: RRR, Normal S1, Normal S2 Abdomen: soft, thin, non-distended, positive bowel sound Extremities: excoriation Internal Medicine Assmt/Plan - Assessment Assessment: ASSESSMENT AND PLAN: Leukopenia, hypokalemia, elevated liver function tests, and denies hepatitis, seizure, but severe low back pain. - Plan Plan: PLAN: Continue the patient on lactulose and _rest of___ medications. The patient was given potassium and antibiotic. We will monitor the patient's signs and symptoms for urinary tract infection. We will continue to follow with you. Nutritional Asmnt/Malnutr-PDOC - Dietary Evaluation Malnutrition Findings (Please click <Entered> for more info): Nutritional Asmnt/Malnutrition Start: 05/03/19 19: 11 Text: Status: Active Freq: Protocol: Document 05/03/19 19:11 [email or web address] (Rec: 05/03/19 19:51 [email or web address]) Nutritional Asmnt/Malnutrition Patient General Information Nutritional Screening Moderate Risk Pertinent Medical Hx/Surgical Hx GERD Subjective Information Pt A&O x 1 to self & time. Pt with poor appetite, refusing some meds, per chart. PO intakes varied, 50-100%. Current Diet Order/ Nutrition Support Mechanical Soft/Chopped Patient / S.O Not Indicated Pertinent Medications docusate sodium, famotidine, lactulose, MVI Pertinent Labs K 3.3, Glucose 110, total bilirubin 1.2, AST 95, ALT 99 Nutritional Hx/Data Height 1.63 m Height (Calculated Centimeters) 162.6 Current Weight (lbs) 72.575 kg Weight (Calculated Kilograms) 72.6 Weight (Calculated Grams) 46060.8 [place] Body Weight 120 lb % [place] Body Weight 133 Body Mass Index (BMI) 27.4 Weight Status Overweight GI Symptoms GI Symptoms None Last BM 04/29 (x 1) Skin Integrity/Comment: Edema: non-pitting 2+ LLE, pitting 2+ RLE Joselo Score: 18 Nutrition Risk: adequate Estimated Nutritional Goals BEE in Kcals: Using Current wt Calories/Kcals/Kg 20-25 Kcals Calculated 9168-0176 Protein: Using Current wt Protein g/k-1.25 Protein Calculated 73-91 Fluid: ml [id number] Nutritional Problem 1. Problem Problem Predicted sub-optimal energy intake related to decreased appetite as evidenced by PO intakes varied, pt consuming < 75% of some meals. Intervention/Recommendation Recommendations by RD Add supplement feedings Comments continue current diet rx per MD. Suggest add Ensure Pudding TID to optimize nutritional intakes. Expected Outcomes/Goals Expected Outcomes/Goals PO intakes >/=75% average of meals and/or PO supplement. Electronically Signed by: Vane Camejo, MPH, RDN Clinical Dietitian 05/03/19 7:53 PM
[2019-05-06] MEDS: OLANZapine 10 mg Oral Disintegrating Tab PO SCH (21:46)
[2019-05-07] MEDS: Multivitamin Tab PO SCH (08:44)
[2019-05-07] MEDS: Multivitamin w/ Minerals Tab PO SCH (08:45)
[2019-05-07] MEDS: Lactulose 10 Gm/15 mL 30mL UDC PO SCH ×2 (09:00→20:26)
--- NOTE | 2019-05-07 16:57 | Progress Notes ---
DATE: 05/06/2019 SUBJECTIVE: The patient is sitting in the wheelchair in front of her room. The patient was happy to see this ____. The patient shows a big smile and say hi. The patient stated that she has been making her bed and taking care of things. The patient also stated that she had been cleaning up the bathroom. The patient continued to have some flight of ideas, talking about herself as a baby. The patient continues to ramble, but not as much as yesterday. The patient reported that she has been eating and sleeping okay and taking her medications. OBJECTIVE: The patient seems to be less delusional, with less rambling of speech and less flight of ideas. The staff reported that the patient has been doing better. She continued to be cooperative with medication, but continued to refuse to take Keppra. The staff reported that the patient has been eating and sleeping okay. Staff reported that the patient has not been agitated, yelling or screaming like before. ASSESSMENT: 1. 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 2. Psychotic disorder and mood disorder, depressed due to medical condition. 3. Impulse control disorder, not otherwise specified. 4. Personality change due to medical condition. PLAN: We will continue the patient on current medication. If the patient does not show much improvement with the current Zyprexa 10 mg, we will consider increasing Zyprexa to 15 mg ____. JOB# [id number]
--- NOTE | 2019-05-07 17:11 | Internal Medicine Prog Note ---
Internal Medicine Subjective - Subjective Service Date: 05/07/19 Patient is:: awake, verbal, interactive Patient Complaints of:: congestion Per staff patient has:: no adverse event, no episodes of fall, poor appetite Internal Medicine Objective - Results Result Diagrams: 04/28/19 01:05 04/28/19 01:00 Recent Labs: Laboratory Last Values WBC 3.7 Th/cmm (4.8-10.8) L 04/28/19 01:05 RBC 4.06 Mil/cmm (3.80-5.20) 04/28/19 01:05 Hgb 13.0 gm/dL (12-16) 04/28/19 01:05 Hct 39.5 % (41.0-60) L 04/28/19 01:05 MCV 97.3 fl (81-100) 04/28/19 01:05 MCH 32.1 pg (27.0-31.0) H 04/28/19 01:05 MCHC Differential 33.0 pg (28.0-36.0) 04/28/19 01:05 RDW 12.8 % (11.5-20.0) 04/28/19 01:05 Plt Count 166 Th/cmm (150-400) 04/28/19 01:05 MPV 7.6 fl 04/28/19 01:05 Neutrophils % 53.8 % (40.0-80.0) 04/28/19 01:05 Lymphocytes % 33.4 % (20.0-50.0) 04/28/19 01:05 Monocytes % 10.9 % (2.0-10.0) H 04/28/19 01:05 Eosinophils % 1.9 % (0.0-5.0) 04/28/19 01:05 Basophils % 0.0 % (0.0-2.0) 04/28/19 01:05 Sodium 142 mEq/L (136-145) 04/28/19 01:00 Potassium 3.3 mEq/L (3.5-5.1) L 04/28/19 01:00 Chloride 110 mEq/L (98-107) H 04/28/19 01:00 Carbon Dioxide 23.8 mEq/L (21.0-31.0) 04/28/19 01:00 Anion Gap 11.5 (7.0-16.0) 04/28/19 01:00 BUN 13 mg/dL (7-25) 04/28/19 01:00 Creatinine 0.5 mg/dL (0.6-1.2) L 04/28/19 01:00 Est GFR ( Amer) > 60.0 ml/min (>90) 04/28/19 01:00 Est GFR (Non-Af Amer) > 60.0 ml/min 04/28/19 01:00 BUN/Creatinine Ratio 26.0 04/28/19 01:00 Glucose 110 mg/dL (70-105) H 04/28/19 01:00 Whole Bld Lactic Acid 1.05 mmol/L (0.60-1.99) 04/28/19 01:05 Calcium 9.5 mg/dL (8.6-10.3) 04/28/19 01:00 Total Bilirubin 1.2 mg/dL (0.3-1.0) H 04/28/19 01:00 AST 95 U/L (13-39) H 04/28/19 01:00 ALT 99 U/L (7-52) H 04/28/19 01:00 Alkaline Phosphatase 104 U/L (34-104) 04/28/19 01:00 Total Protein 8.0 gm/dL (6.0-8.3) 04/28/19 01:00 Albumin 3.9 gm/dL (3.7-5.3) 04/28/19 01:00 Globulin 4.1 gm/dL 04/28/19 01:00 Albumin/Globulin Ratio 1.0 (1.0-1.8) 04/28/19 01:00 Triglycerides 49 mg/dL (<150) 04/28/19 01:00 Cholesterol 95 mg/dL (<200) 04/28/19 01:00 LDL Cholesterol Direct 57 mg/dL (75-193) L 04/28/19 01:00 HDL Cholesterol 31 mg/dL (23-92) 04/28/19 01:00 TSH 1.00 uIU/ml (0.34-5.60) 04/28/19 01:00 Urine Source RANDOM 04/28/19 01:00 Urine Color ORANGE 04/28/19 01:00 Urine Clarity HAZY (CLEAR) 04/28/19 01:00 Urine pH 6.0 (4.6 - 8.0) 04/28/19 01:00 Ur Specific [place] 1.025 (1.005-1.030) 04/28/19 01:00 Urine Protein 30 mg/dL (NEGATIVE) H 04/28/19 01:00 Urine Glucose (UA) NEGATIVE mg/dL (NEGATIVE) 04/28/19 01:00 Urine Ketones TRACE mg/dL (NEGATIVE) 04/28/19 01:00 Urine Blood NEGATIVE (NEGATIVE) 04/28/19 01:00 Urine Nitrate POSITIVE (NEGATIVE) H 04/28/19 01:00 Urine Bilirubin NEGATIVE (NEGATIVE) 04/28/19 01:00 Urine Urobilinogen 4.0 E.U./dL (0.2 - 1.0) H 04/28/19 01:00 Ur Leukocyte Esterase TRACE (NEGATIVE) H 04/28/19 01:00 Urine RBC 0-2 /hpf (0-5) 04/28/19 01:00 Urine WBC 0-2 /hpf (0-5) 04/28/19 01:00 Ur Epithelial Cells FEW /lpf (FEW) 04/28/19 01:00 Urine Bacteria MODERATE /hpf (NONE SEEN) H 04/28/19 01:00 Levetiracetam 11.7 ug/mL (10.0-40.0) 04/28/19 01:05 RPR NONREACTIVE (NONREACTIVE) 04/28/19 01:05 Hepatitis A IgM Ab Negative (Negative) 04/28/19 08:56 Hep Bs Antigen Negative (Negative) 04/28/19 08:56 Hep B Core IgM Ab Negative (Negative) 04/28/19 08:56 Hepatitis C Antibody >11.0 s/co ratio (0.0-0.9) H 04/28/19 08:56 HIV-1 RNA Qnt (RT-PCR) <20 copies/mL 05/03/19 15:00 - Physical Exam Vitals and I&O: Vital Signs Temp 97.6 F 05/07/19 14:45 Pulse 84 05/07/19 14:45 Resp 20 05/07/19 14:45 BP 135/71 05/07/19 14:45 Pulse Ox 97 05/07/19 14:45 Intake & Output 05/06/19 05/07/19 05/07/19 18:59 06:59 18:59 Intake Total 1000 360 Balance 1000 360 Intake: Oral 1000 360 Other: # Voids 4 2 # Bowel Movements 1 0 Stool Characteristics Formed Formed Active Medications: Current Medications Acetaminophen (Tylenol) 650 mg PO Q4HR PRN PRN Reason: Pain or Fever >101 Stop: 06/27/19 12:31 Last Admin: 05/06/19 21:46 Dose: 650 mg Al Hydrox/Mg Hydrox/Simethicone (Maalox) 30 ml PO Q4HR PRN PRN Reason: GI DISTRESS Stop: 06/27/19 03:31 Docusate Sodium (Colace) 100 mg PO DAILY EILEEN Stop: 06/28/19 08:59 Last Admin: 05/07/19 08:44 Dose: 100 mg Famotidine (Pepcid) 40 mg PO DAILY EILEEN Stop: 06/28/19 08:59 Last Admin: 05/07/19 08:45 Dose: 40 mg Lactulose (Cephulac) 30 gm PO TID EILEEN Stop: 06/27/19 13:59 Last Admin: 05/07/19 09:00 Dose: Not Given Levetiracetam (Keppra) 500 mg PO Q12H EILEEN Stop: 07/05/19 20:59 Last Admin: 05/07/19 08:45 Dose: 500 mg Lorazepam (Ativan) 0.5 mg PO Q6HR PRN; Protocol PRN Reason: Agitation Stop: 07/03/19 10:24 Last Admin: 05/04/19 21:05 Dose: 0.5 mg Multivitamins/Vitamin C (Theragran) 1 tab PO DAILY EILEEN Stop: 06/27/19 08:59 Last Admin: 05/07/19 08:44 Dose: 1 tab Olanzapine (Zyprexa Zydis) 10 mg PO HS EILEEN; Protocol Stop: 07/03/19 20:59 Last Admin: 05/06/19 21:46 Dose: 10 mg Zolpidem Tartrate (Ambien) 5 mg PO HS PRN PRN Reason: Insomnia Stop: 06/27/19 03:31 Last Admin: 05/06/19 21:46 Dose: 5 mg General: demented HEENT: NC/AT, PERRLA, EOMI Neck: Supple, No JVD Lungs: CTAB Cardiovascular: RRR, Normal S1, Normal S2 Abdomen: soft, thin, non-distended, positive bowel sound Extremities: excoriation Internal Medicine Assmt/Plan - Assessment Assessment: Leukopenia, hypokalemia, elevated liver function tests, and denies hepatitis, seizure, but severe low back pain. - Plan Plan: We will monitor the patient's signs and symptoms for urinary tract infection. We will continue to follow with you. Nutritional Asmnt/Malnutr-PDOC - Dietary Evaluation Malnutrition Findings (Please click <Entered> for more info): Nutritional Asmnt/Malnutrition Start: 05/03/19 19: 11 Text: Status: Active Freq: Protocol: Document 05/03/19 19:11 [email or web address] (Rec: 05/03/19 19:51 [email or web address]) Nutritional Asmnt/Malnutrition Patient General Information Nutritional Screening Moderate Risk Pertinent Medical Hx/Surgical Hx GERD Subjective Information Pt A&O x 1 to self & time. Pt with poor appetite, refusing some meds, per chart. PO intakes varied, 50-100%. Current Diet Order/ Nutrition Support Mechanical Soft/Chopped Patient / S.O Not Indicated Pertinent Medications docusate sodium, famotidine, lactulose, MVI Pertinent Labs K 3.3, Glucose 110, total bilirubin 1.2, AST 95, ALT 99 Nutritional Hx/Data Height 5 ft 4 in Height (Calculated Centimeters) 162.6 Current Weight (lbs) 160 lb Weight (Calculated Kilograms) 72.6 Weight (Calculated Grams) 96550.8 [place] Body Weight 120 lb % [place] Body Weight 133 Body Mass Index (BMI) 27.4 Weight Status Overweight GI Symptoms GI Symptoms None Last BM 04/29 (x 1) Skin Integrity/Comment: Edema: non-pitting 2+ LLE, pitting 2+ RLE Joselo Score: 18 Nutrition Risk: adequate Estimated Nutritional Goals BEE in Kcals: Using Current wt Calories/Kcals/Kg 20-25 Kcals Calculated 2794-8138 Protein: Using Current wt Protein g/k-1.25 Protein Calculated 73-91 Fluid: ml 1125-3491 Nutritional Problem 1. Problem Problem Predicted sub-optimal energy intake related to decreased appetite as evidenced by PO intakes varied, pt consuming < 75% of some meals. Intervention/Recommendation Recommendations by RD Add supplement feedings Comments continue current diet rx per MD. Suggest add Ensure Pudding TID to optimize nutritional intakes. Expected Outcomes/Goals Expected Outcomes/Goals PO intakes >/=75% average of meals and/or PO supplement. Electronically Signed by: Vane Camejo, MPH, RDN Clinical Dietitian 05/03/19 7:53 PM
[2019-05-07] MEDS: OLANZapine 10 mg Oral Disintegrating Tab PO SCH (20:24)
--- NOTE | 2019-05-08 02:17 | Progress Notes ---
DATE: 05/07/2019 PSYCHIATRIC PROGRESS NOTE SUBJECTIVE: Staff was spoken to. The patient is interviewed. Mood is noted to be irritable. Affect is constricted. The patient has been having difficult time to cope with the stress at this time. The patient is still paranoid and responding to the internal stimuli, but so far has been able to tolerate the medication. The patient's coping skills are noted to be extremely poor at this time and the patient is reported to have been selective with her medications. The patient is currently on Zyprexa and has been able to tolerate. No side effects to the medications are noted. Sleep is noted to be fair. Appetite is noted to be improving at this time. ASSESSMENT: The patient is still paranoid, psychotic, and demented. PLAN: To continue the patient with the current medications. I encouraged the patient to verbalize the concerns rather than to act out. Plan is to closely monitor the patient and follow. JOB# [id number]
--- NOTE | 2019-05-08 02:30 | Progress Notes ---
DATE: 05/06/2019 PSYCHOLOGY PROGRESS NOTE SUBJECTIVE: The patient is seen in the dining room activity area. The patient presents as verbally intrusive. The patient is rambling and talking about different things that seem to be irrelevant to the clinical question being asked. The patient is exhibiting flight of ideas with loose associations. Staff reports the patient is taking her psychotropic medications, contingent on the reward for being able to have a smoke break. However, the patient continues to refuse to take her lactulose. OBJECTIVE: Mood is labile. Affect is broad and animated. Thought process shows to be markedly tangential with loose associations. The patient denied any hallucinations or delusions. The patient is being selective with her medications; however, the patient is taking her psychotropic medications, but declining the lactulose. The patient appears to be less agitated. ASSESSMENT AND PLAN: The patient's psychosis persists. The patient was provided a stress management approach to increase the patient's frustration tolerance and remotivation was provided for the patient to become compliant with all of her medication. The patient stated that she will continue to refuse the lactulose. We provided coping strategies for chronic severe mental illness and encouraged the patient to demonstrate emotional and self-regulation and to be less intrusive with peers and staff. We will follow up in 2-3 days to continue the present treatment if the patient remains admitted on the unit. [facility]# [id number] FERNANDO
[2019-05-08] MEDS: Multivitamin Tab PO SCH (09:02)
[2019-05-08] MEDS: Multivitamin w/ Minerals Tab PO SCH (09:02)
[2019-05-08] MEDS: Lactulose 10 Gm/15 mL 30mL UDC PO SCH ×3 (09:03→21:07)
--- NOTE | 2019-05-08 16:06 | Internal Medicine Prog Note ---
Internal Medicine Subjective - Subjective Service Date: 05/08/19 Patient is:: awake, verbal, interactive Patient Complaints of:: congestion Per staff patient has:: no adverse event, no episodes of fall, poor appetite Internal Medicine Objective - Results Result Diagrams: 04/28/19 01:05 04/28/19 01:00 Recent Labs: Laboratory Last Values WBC 3.7 Th/cmm (4.8-10.8) L 04/28/19 01:05 RBC 4.06 Mil/cmm (3.80-5.20) 04/28/19 01:05 Hgb 13.0 gm/dL (12-16) 04/28/19 01:05 Hct 39.5 % (41.0-60) L 04/28/19 01:05 MCV 97.3 fl (81-100) 04/28/19 01:05 MCH 32.1 pg (27.0-31.0) H 04/28/19 01:05 MCHC Differential 33.0 pg (28.0-36.0) 04/28/19 01:05 RDW 12.8 % (11.5-20.0) 04/28/19 01:05 Plt Count 166 Th/cmm (150-400) 04/28/19 01:05 MPV 7.6 fl 04/28/19 01:05 Neutrophils % 53.8 % (40.0-80.0) 04/28/19 01:05 Lymphocytes % 33.4 % (20.0-50.0) 04/28/19 01:05 Monocytes % 10.9 % (2.0-10.0) H 04/28/19 01:05 Eosinophils % 1.9 % (0.0-5.0) 04/28/19 01:05 Basophils % 0.0 % (0.0-2.0) 04/28/19 01:05 Sodium 142 mEq/L (136-145) 04/28/19 01:00 Potassium 3.3 mEq/L (3.5-5.1) L 04/28/19 01:00 Chloride 110 mEq/L (98-107) H 04/28/19 01:00 Carbon Dioxide 23.8 mEq/L (21.0-31.0) 04/28/19 01:00 Anion Gap 11.5 (7.0-16.0) 04/28/19 01:00 BUN 13 mg/dL (7-25) 04/28/19 01:00 Creatinine 0.5 mg/dL (0.6-1.2) L 04/28/19 01:00 Est GFR ( Amer) > 60.0 ml/min (>90) 04/28/19 01:00 Est GFR (Non-Af Amer) > 60.0 ml/min 04/28/19 01:00 BUN/Creatinine Ratio 26.0 04/28/19 01:00 Glucose 110 mg/dL (70-105) H 04/28/19 01:00 Whole Bld Lactic Acid 1.05 mmol/L (0.60-1.99) 04/28/19 01:05 Calcium 9.5 mg/dL (8.6-10.3) 04/28/19 01:00 Total Bilirubin 1.2 mg/dL (0.3-1.0) H 04/28/19 01:00 AST 95 U/L (13-39) H 04/28/19 01:00 ALT 99 U/L (7-52) H 04/28/19 01:00 Alkaline Phosphatase 104 U/L (34-104) 04/28/19 01:00 Total Protein 8.0 gm/dL (6.0-8.3) 04/28/19 01:00 Albumin 3.9 gm/dL (3.7-5.3) 04/28/19 01:00 Globulin 4.1 gm/dL 04/28/19 01:00 Albumin/Globulin Ratio 1.0 (1.0-1.8) 04/28/19 01:00 Triglycerides 49 mg/dL (<150) 04/28/19 01:00 Cholesterol 95 mg/dL (<200) 04/28/19 01:00 LDL Cholesterol Direct 57 mg/dL (75-193) L 04/28/19 01:00 HDL Cholesterol 31 mg/dL (23-92) 04/28/19 01:00 TSH 1.00 uIU/ml (0.34-5.60) 04/28/19 01:00 Urine Source RANDOM 04/28/19 01:00 Urine Color ORANGE 04/28/19 01:00 Urine Clarity HAZY (CLEAR) 04/28/19 01:00 Urine pH 6.0 (4.6 - 8.0) 04/28/19 01:00 Ur Specific [place] 1.025 (1.005-1.030) 04/28/19 01:00 Urine Protein 30 mg/dL (NEGATIVE) H 04/28/19 01:00 Urine Glucose (UA) NEGATIVE mg/dL (NEGATIVE) 04/28/19 01:00 Urine Ketones TRACE mg/dL (NEGATIVE) 04/28/19 01:00 Urine Blood NEGATIVE (NEGATIVE) 04/28/19 01:00 Urine Nitrate POSITIVE (NEGATIVE) H 04/28/19 01:00 Urine Bilirubin NEGATIVE (NEGATIVE) 04/28/19 01:00 Urine Urobilinogen 4.0 E.U./dL (0.2 - 1.0) H 04/28/19 01:00 Ur Leukocyte Esterase TRACE (NEGATIVE) H 04/28/19 01:00 Urine RBC 0-2 /hpf (0-5) 04/28/19 01:00 Urine WBC 0-2 /hpf (0-5) 04/28/19 01:00 Ur Epithelial Cells FEW /lpf (FEW) 04/28/19 01:00 Urine Bacteria MODERATE /hpf (NONE SEEN) H 04/28/19 01:00 Levetiracetam 11.7 ug/mL (10.0-40.0) 04/28/19 01:05 RPR NONREACTIVE (NONREACTIVE) 04/28/19 01:05 Hepatitis A IgM Ab Negative (Negative) 04/28/19 08:56 Hep Bs Antigen Negative (Negative) 04/28/19 08:56 Hep B Core IgM Ab Negative (Negative) 04/28/19 08:56 Hepatitis C Antibody >11.0 s/co ratio (0.0-0.9) H 04/28/19 08:56 HIV-1 RNA Qnt (RT-PCR) <20 copies/mL 05/03/19 15:00 - Physical Exam Vitals and I&O: Vital Signs Temp 98.2 F 05/08/19 15:09 Pulse 95 05/08/19 15:09 Resp 20 05/08/19 15:09 BP 118/78 05/08/19 15:09 Pulse Ox 97 05/08/19 15:09 Intake & Output 05/07/19 05/08/19 05/08/19 18:59 06:59 18:59 Intake Total 480 Balance 480 Intake: Oral 480 Other: # Voids 2 # Bowel Movements 1 Stool Characteristics Formed Soft Soft Active Medications: Current Medications Acetaminophen (Tylenol) 650 mg PO Q4HR PRN PRN Reason: Pain or Fever >101 Stop: 06/27/19 12:31 Last Admin: 05/07/19 23:29 Dose: 650 mg Al Hydrox/Mg Hydrox/Simethicone (Maalox) 30 ml PO Q4HR PRN PRN Reason: GI DISTRESS Stop: 06/27/19 03:31 Docusate Sodium (Colace) 100 mg PO DAILY EILEEN Stop: 06/28/19 08:59 Last Admin: 05/08/19 09:02 Dose: 100 mg Famotidine (Pepcid) 40 mg PO DAILY EILEEN Stop: 06/28/19 08:59 Last Admin: 05/08/19 09:02 Dose: 40 mg Haloperidol (Haldol) 2 mg PO BID PRN; Protocol PRN Reason: Agitation Stop: 07/07/19 12:28 Lactulose (Cephulac) 30 gm PO TID EILEEN Stop: 06/27/19 13:59 Last Admin: 05/08/19 09:03 Dose: 30 gm Levetiracetam (Keppra) 500 mg PO Q12H EILEEN Stop: 07/05/19 20:59 Last Admin: 05/08/19 09:02 Dose: 500 mg Lorazepam (Ativan) 0.5 mg PO Q6HR PRN; Protocol PRN Reason: Agitation Stop: 07/03/19 10:24 Last Admin: 05/04/19 21:05 Dose: 0.5 mg Multivitamins/Vitamin C (Theragran) 1 tab PO DAILY EILEEN Stop: 06/27/19 08:59 Last Admin: 05/08/19 09:02 Dose: 1 tab Olanzapine (Zyprexa Zydis) 10 mg PO HS EILEEN; Protocol Stop: 07/03/19 20:59 Last Admin: 05/07/19 20:24 Dose: 10 mg Zolpidem Tartrate (Ambien) 5 mg PO HS PRN PRN Reason: Insomnia Stop: 06/27/19 03:31 Last Admin: 05/07/19 20:24 Dose: 5 mg General: demented HEENT: NC/AT, PERRLA, EOMI Neck: Supple, No JVD Lungs: CTAB Cardiovascular: RRR, Normal S1, Normal S2 Abdomen: soft, thin, non-distended, positive bowel sound Extremities: excoriation Internal Medicine Assmt/Plan - Assessment Assessment: Leukopenia, hypokalemia, elevated liver function tests, and denies hepatitis, seizure, but severe low back pain. - Plan Plan: We will monitor the patient's signs and symptoms for urinary tract infection. We will continue to follow with you. Nutritional Asmnt/Malnutr-PDOC - Dietary Evaluation Malnutrition Findings (Please click <Entered> for more info): Nutritional Asmnt/Malnutrition Start: 05/03/19 19: 11 Text: Status: Active Freq: Protocol: Document 05/03/19 19:11 [email or web address] (Rec: 05/03/19 19:51 [email or web address]) Nutritional Asmnt/Malnutrition Patient General Information Nutritional Screening Moderate Risk Pertinent Medical Hx/Surgical Hx GERD Subjective Information Pt A&O x 1 to self & time. Pt with poor appetite, refusing some meds, per chart. PO intakes varied, 50-100%. Current Diet Order/ Nutrition Support Mechanical Soft/Chopped Patient / S.O Not Indicated Pertinent Medications docusate sodium, famotidine, lactulose, MVI Pertinent Labs K 3.3, Glucose 110, total bilirubin 1.2, AST 95, ALT 99 Nutritional Hx/Data Height 5 ft 4 in Height (Calculated Centimeters) 162.6 Current Weight (lbs) 160 lb Weight (Calculated Kilograms) 72.6 Weight (Calculated Grams) 52992.8 [place] Body Weight 120 lb % [place] Body Weight 133 Body Mass Index (BMI) 27.4 Weight Status Overweight GI Symptoms GI Symptoms None Last BM 04/29 (x 1) Skin Integrity/Comment: Edema: non-pitting 2+ LLE, pitting 2+ RLE Joselo Score: 18 Nutrition Risk: adequate Estimated Nutritional Goals BEE in Kcals: Using Current wt Calories/Kcals/Kg 20-25 Kcals Calculated 8138-7243 Protein: Using Current wt Protein g/k-1.25 Protein Calculated 73-91 Fluid: ml 7604-8148 Nutritional Problem 1. Problem Problem Predicted sub-optimal energy intake related to decreased appetite as evidenced by PO intakes varied, pt consuming < 75% of some meals. Intervention/Recommendation Recommendations by RD Add supplement feedings Comments continue current diet rx per MD. Suggest add Ensure Pudding TID to optimize nutritional intakes. Expected Outcomes/Goals Expected Outcomes/Goals PO intakes >/=75% average of meals and/or PO supplement. Electronically Signed by: Vane Camejo, MPH, RDN Clinical Dietitian 05/03/19 7:53 PM
[2019-05-08] MEDS: OLANZapine 10 mg Oral Disintegrating Tab PO SCH (21:07)
--- NOTE | 2019-05-09 01:16 | Progress Notes ---
DATE: 05/08/2019 PSYCHIATRIC PROGRESS NOTE SUBJECTIVE: Staff was spoken to. The patient is interviewed. Mood is noted to be irritable. Affect is constricted. Insight and judgment are noted to be still impaired. Impulse control is noted to be poor. The patient has been still very angry and upset stating that she wants to take the medication whenever she wants it. The patient has no insight into her illness. Continues to be very paranoid and is talking to herself. The patient is getting easily agitated and the patient has been on Zyprexa and is not compliant on a consistent basis. In view of the patient's psychosis and her actively responding to internal stimuli, it is decided to see if we can start the patient on low dose of Haldol and when she is able to tolerate the medication, possibly the patient is going to be placed on the Haldol Decanoate in view of her noncompliance. ASSESSMENT: The patient is still grossly psychotic and impulsive. PLAN: To continue the patient with the supportive therapy and followup. JOB# [id number]
[2019-05-09] MEDS: Lactulose 10 Gm/15 mL 30mL UDC PO SCH ×4 (08:24→22:26)
[2019-05-09] MEDS: Multivitamin Tab PO SCH (08:24)
[2019-05-09] MEDS: Multivitamin w/ Minerals Tab PO SCH (08:24)
[2019-05-09] MEDS ORDERED: Haloperidol Lactate Oral sol. 2 mg/mL Udc PO PRN (12:00)
--- NOTE | 2019-05-09 12:18 | Internal Medicine Prog Note ---
Internal Medicine Subjective - Subjective Patient seen and examined:: with staff, chart reviewed Patient is:: awake, verbal, interactive Patient Complaints of:: congestion Per staff patient has:: no adverse event, no episodes of fall, poor appetite Internal Medicine Objective - Results Result Diagrams: 04/28/19 01:05 04/28/19 01:00 Recent Labs: Laboratory Last Values WBC 3.7 Th/cmm (4.8-10.8) L 04/28/19 01:05 RBC 4.06 Mil/cmm (3.80-5.20) 04/28/19 01:05 Hgb 13.0 gm/dL (12-16) 04/28/19 01:05 Hct 39.5 % (41.0-60) L 04/28/19 01:05 MCV 97.3 fl (81-100) 04/28/19 01:05 MCH 32.1 pg (27.0-31.0) H 04/28/19 01:05 MCHC Differential 33.0 pg (28.0-36.0) 04/28/19 01:05 RDW 12.8 % (11.5-20.0) 04/28/19 01:05 Plt Count 166 Th/cmm (150-400) 04/28/19 01:05 MPV 7.6 fl 04/28/19 01:05 Neutrophils % 53.8 % (40.0-80.0) 04/28/19 01:05 Lymphocytes % 33.4 % (20.0-50.0) 04/28/19 01:05 Monocytes % 10.9 % (2.0-10.0) H 04/28/19 01:05 Eosinophils % 1.9 % (0.0-5.0) 04/28/19 01:05 Basophils % 0.0 % (0.0-2.0) 04/28/19 01:05 Sodium 142 mEq/L (136-145) 04/28/19 01:00 Potassium 3.3 mEq/L (3.5-5.1) L 04/28/19 01:00 Chloride 110 mEq/L (98-107) H 04/28/19 01:00 Carbon Dioxide 23.8 mEq/L (21.0-31.0) 04/28/19 01:00 Anion Gap 11.5 (7.0-16.0) 04/28/19 01:00 BUN 13 mg/dL (7-25) 04/28/19 01:00 Creatinine 0.5 mg/dL (0.6-1.2) L 04/28/19 01:00 Est GFR ( Amer) > 60.0 ml/min (>90) 04/28/19 01:00 Est GFR (Non-Af Amer) > 60.0 ml/min 04/28/19 01:00 BUN/Creatinine Ratio 26.0 04/28/19 01:00 Glucose 110 mg/dL (70-105) H 04/28/19 01:00 Whole Bld Lactic Acid 1.05 mmol/L (0.60-1.99) 04/28/19 01:05 Calcium 9.5 mg/dL (8.6-10.3) 04/28/19 01:00 Total Bilirubin 1.2 mg/dL (0.3-1.0) H 04/28/19 01:00 AST 95 U/L (13-39) H 04/28/19 01:00 ALT 99 U/L (7-52) H 04/28/19 01:00 Alkaline Phosphatase 104 U/L (34-104) 04/28/19 01:00 Total Protein 8.0 gm/dL (6.0-8.3) 04/28/19 01:00 Albumin 3.9 gm/dL (3.7-5.3) 04/28/19 01:00 Globulin 4.1 gm/dL 04/28/19 01:00 Albumin/Globulin Ratio 1.0 (1.0-1.8) 04/28/19 01:00 Triglycerides 49 mg/dL (<150) 04/28/19 01:00 Cholesterol 95 mg/dL (<200) 04/28/19 01:00 LDL Cholesterol Direct 57 mg/dL (75-193) L 04/28/19 01:00 HDL Cholesterol 31 mg/dL (23-92) 04/28/19 01:00 TSH 1.00 uIU/ml (0.34-5.60) 04/28/19 01:00 Urine Source RANDOM 04/28/19 01:00 Urine Color ORANGE 04/28/19 01:00 Urine Clarity HAZY (CLEAR) 04/28/19 01:00 Urine pH 6.0 (4.6 - 8.0) 04/28/19 01:00 Ur Specific [place] 1.025 (1.005-1.030) 04/28/19 01:00 Urine Protein 30 mg/dL (NEGATIVE) H 04/28/19 01:00 Urine Glucose (UA) NEGATIVE mg/dL (NEGATIVE) 04/28/19 01:00 Urine Ketones TRACE mg/dL (NEGATIVE) 04/28/19 01:00 Urine Blood NEGATIVE (NEGATIVE) 04/28/19 01:00 Urine Nitrate POSITIVE (NEGATIVE) H 04/28/19 01:00 Urine Bilirubin NEGATIVE (NEGATIVE) 04/28/19 01:00 Urine Urobilinogen 4.0 E.U./dL (0.2 - 1.0) H 04/28/19 01:00 Ur Leukocyte Esterase TRACE (NEGATIVE) H 04/28/19 01:00 Urine RBC 0-2 /hpf (0-5) 04/28/19 01:00 Urine WBC 0-2 /hpf (0-5) 04/28/19 01:00 Ur Epithelial Cells FEW /lpf (FEW) 04/28/19 01:00 Urine Bacteria MODERATE /hpf (NONE SEEN) H 04/28/19 01:00 Levetiracetam 11.7 ug/mL (10.0-40.0) 04/28/19 01:05 RPR NONREACTIVE (NONREACTIVE) 04/28/19 01:05 Hepatitis A IgM Ab Negative (Negative) 04/28/19 08:56 Hep Bs Antigen Negative (Negative) 04/28/19 08:56 Hep B Core IgM Ab Negative (Negative) 04/28/19 08:56 Hepatitis C Antibody >11.0 s/co ratio (0.0-0.9) H 04/28/19 08:56 HIV-1 RNA Qnt (RT-PCR) <20 copies/mL 05/03/19 15:00 - Physical Exam Vitals and I&O: Vital Signs Temp 98.1 F 05/09/19 06:23 Pulse 99 05/09/19 06:23 Resp 20 05/09/19 07:37 BP 96/67 05/09/19 06:23 Pulse Ox 96 05/09/19 06:23 Intake & Output 05/08/19 05/09/19 05/09/19 18:59 06:59 18:59 Intake Total 1200 240 Output Total 1 Balance 1200 239 Intake: Oral 1200 240 Output: Urine/Stool Mix 1 Other: # Voids 4 3 # Bowel Movements 1 0 Stool Characteristics Soft Soft Soft Active Medications: Current Medications Acetaminophen (Tylenol) 650 mg PO Q4HR PRN PRN Reason: Pain or Fever >101 Stop: 06/27/19 12:31 Last Admin: 05/07/19 23:29 Dose: 650 mg Al Hydrox/Mg Hydrox/Simethicone (Maalox) 30 ml PO Q4HR PRN PRN Reason: GI DISTRESS Stop: 06/27/19 03:31 Docusate Sodium (Colace) 100 mg PO DAILY [facility] Stop: 06/28/19 08:59 Last Admin: 05/09/19 08:25 Dose: Not Given Famotidine (Pepcid) 40 mg PO DAILY [facility] Stop: 06/28/19 08:59 Last Admin: 05/09/19 08:25 Dose: 40 mg Haloperidol Lactate (Haldol) 2 mg PO BID PRN; Protocol PRN Reason: Agitation Stop: 07/07/19 12:28 Ibuprofen (Motrin) 600 mg PO Q6H PRN PRN Reason: moderate to severe pain Stop: 07/07/19 23:14 Last Admin: 05/09/19 09:00 Dose: 600 mg Lactulose (Cephulac) 30 gm PO TID [facility] Stop: 06/27/19 13:59 Last Admin: 05/09/19 08:24 Dose: 30 gm Levetiracetam (Keppra) 500 mg PO Q12H [facility] Stop: 07/05/19 20:59 Last Admin: 05/09/19 08:24 Dose: 500 mg Lorazepam (Ativan) 0.5 mg PO Q6HR PRN; Protocol PRN Reason: Agitation Stop: 07/03/19 10:24 Last Admin: 05/09/19 09:01 Dose: 0.5 mg Multivitamins/Vitamin C (Theragran) 1 tab PO DAILY [facility] Stop: 06/27/19 08:59 Last Admin: 05/09/19 08:24 Dose: 1 tab Olanzapine (Zyprexa Zydis) 10 mg PO HS [facility]; Protocol Stop: 07/03/19 20:59 Last Admin: 05/08/19 21:07 Dose: 10 mg Zolpidem Tartrate (Ambien) 5 mg PO HS PRN PRN Reason: Insomnia Stop: 06/27/19 03:31 Last Admin: 05/08/19 20:59 Dose: 5 mg General: demented HEENT: NC/AT, PERRLA, EOMI Neck: Supple, No JVD Lungs: CTAB Cardiovascular: RRR, Normal S1, Normal S2 Abdomen: soft, thin, non-distended, positive bowel sound Extremities: excoriation Internal Medicine Assmt/Plan - Assessment Assessment: ASSESSMENT AND PLAN: Leukopenia, hypokalemia, elevated liver function tests, hepatitis c, seizure, but severe low back pain. - Plan Plan: PLAN: Continue the patient on lactulose and _rest of___ medications. The patient was given potassium and antibiotic. We will monitor the patient's signs and symptoms for urinary tract infection. We will continue to follow with you. Nutritional Asmnt/Malnutr-PDOC - Dietary Evaluation Malnutrition Findings (Please click <Entered> for more info): Nutritional Asmnt/Malnutrition Start: 05/03/19 19: 11 Text: Status: Active Freq: Protocol: Document 05/03/19 19:11 [email or web address] (Rec: 05/03/19 19:51 [email or web address]) Nutritional Asmnt/Malnutrition Patient General Information Nutritional Screening Moderate Risk Pertinent Medical Hx/Surgical Hx GERD Subjective Information Pt A&O x 1 to self & time. Pt with poor appetite, refusing some meds, per chart. PO intakes varied, 50-100%. Current Diet Order/ Nutrition Support Mechanical Soft/Chopped Patient / S.O Not Indicated Pertinent Medications docusate sodium, famotidine, lactulose, MVI Pertinent Labs K 3.3, Glucose 110, total bilirubin 1.2, AST 95, ALT 99 Nutritional Hx/Data Height 1.63 m Height (Calculated Centimeters) 162.6 Current Weight (lbs) 72.575 kg Weight (Calculated Kilograms) 72.6 Weight (Calculated Grams) 99892.8 [place] Body Weight 120 lb % [place] Body Weight 133 Body Mass Index (BMI) 27.4 Weight Status Overweight GI Symptoms GI Symptoms None Last BM 04/29 (x 1) Skin Integrity/Comment: Edema: non-pitting 2+ LLE, pitting 2+ RLE Joselo Score: 18 Nutrition Risk: adequate Estimated Nutritional Goals BEE in Kcals: Using Current wt Calories/Kcals/Kg 20-25 Kcals Calculated 8788-9068 Protein: Using Current wt Protein g/k-1.25 Protein Calculated 73-91 Fluid: ml 8898-3099 Nutritional Problem 1. Problem Problem Predicted sub-optimal energy intake related to decreased appetite as evidenced by PO intakes varied, pt consuming < 75% of some meals. Intervention/Recommendation Recommendations by RD Add supplement feedings Comments continue current diet rx per MD. Suggest add Ensure Pudding TID to optimize nutritional intakes. Expected Outcomes/Goals Expected Outcomes/Goals PO intakes >/=75% average of meals and/or PO supplement. Electronically Signed by: Vane Camejo, MPH, RDN Clinical Dietitian 05/03/19 7:53 PM
[2019-05-09] MEDS ORDERED: Haloperidol Lactate 5 mg/mL 1mL Vial IM STA (18:31)
[2019-05-09] MEDS ORDERED: Haloperidol Lactate 5 mg/mL 1mL Vial ONE (18:47)
--- NOTE | 2019-05-09 21:30 | Progress Notes ---
DATE: 05/09/2019 PSYCHOLOGY PROGRESS NOTE SUBJECTIVE: The patient is seen and is interviewed in the dining area. Case is discussed with staff. The patient presents as guarded, but is exhibiting rambling speech. The patient is difficult to cognitively redirect. The patient is still upset about her medications as well as about the number of smoke breaks. The patient seemed fixated on these two issues. The patient is able to tolerate the psychotropic medications. The attending psychiatrist indicates the patient might start on a low dose of Haldol in view of her noncompliance. OBJECTIVE: Mood is irritable. Affect is animated and broad. Thought process shows marked tangentiality with derailments. The patient is not responding well to cognitive redirection and is perseverating on smoke breaks and discharge. The patient denied any auditory or visual hallucinations; however, the patient seems to be responding to internal stimuli. The patient has been difficult to redirect and is intrusive with staff as well as other peers on the unit. ASSESSMENT AND PLAN: The patient's psychosis and impulsivity persist. We provided cognitive refocusing and behavioral redirection. We provided remotivation as well as positive reinforcement for the patient to become compliant and stay compliant with her care and treatment and to accept the medications. We provided reality testing along with reality differentiation and integration to assist the patient on focusing on reality based thoughts versus delusional thought. We encouraged the patient to demonstrate emotional and self-regulation and to be less intrusive with staff and peers. We provided coping strategies for chronic severe mental illness and for phase of life issues. We will continue the present treatment if the patient remains admitted on the unit. This program writer will follow up in 2 days. JOB# [id number] FERNANDO
[2019-05-09] MEDS: OLANZapine 10 mg Oral Disintegrating Tab PO SCH (22:19)
--- NOTE | 2019-05-10 02:50 | Progress Notes ---
DATE: 05/09/2019 PSYCHIATRIC PROGRESS NOTE SUBJECTIVE: Staff was spoken to. The patient is interviewed. Mood is noted to be irritable. Affect is constricted. The patient is cursing people out. The patient has no insight into her illness. Coping skills are noted to be extremely poor. The patient has been having difficult time to cope with the stress. No side effects to the medications are noted at this time. ASSESSMENT: The patient is still grossly psychotic. PLAN: To continue the patient with the current medications. I encouraged the patient to comply with the treatment. Since the patient has been reluctant to comply, we might need to give the patient intramuscular dose of the medications because the patient is not making any sense and behavior has been getting out of control. The patient is currently on olanzapine 10 mg at bedtime and Haldol is going to be given on a p.r.n. basis. JOB# [id number]
[2019-05-10] MEDS: Lactulose 10 Gm/15 mL 30mL UDC PO SCH ×3 (08:17→21:36)
[2019-05-10] MEDS: Multivitamin Tab PO SCH (08:17)
[2019-05-10] MEDS: Multivitamin w/ Minerals Tab PO SCH (08:18)
--- NOTE | 2019-05-10 12:28 | Internal Medicine Prog Note ---
Internal Medicine Subjective - Subjective Patient seen and examined:: with staff, chart reviewed Patient is:: awake, verbal, interactive Patient Complaints of:: congestion Per staff patient has:: no adverse event, no episodes of fall, poor appetite Internal Medicine Objective - Results Result Diagrams: 04/28/19 01:05 04/28/19 01:00 Recent Labs: Laboratory Last Values WBC 3.7 Th/cmm (4.8-10.8) L 04/28/19 01:05 RBC 4.06 Mil/cmm (3.80-5.20) 04/28/19 01:05 Hgb 13.0 gm/dL (12-16) 04/28/19 01:05 Hct 39.5 % (41.0-60) L 04/28/19 01:05 MCV 97.3 fl (81-100) 04/28/19 01:05 MCH 32.1 pg (27.0-31.0) H 04/28/19 01:05 MCHC Differential 33.0 pg (28.0-36.0) 04/28/19 01:05 RDW 12.8 % (11.5-20.0) 04/28/19 01:05 Plt Count 166 Th/cmm (150-400) 04/28/19 01:05 MPV 7.6 fl 04/28/19 01:05 Neutrophils % 53.8 % (40.0-80.0) 04/28/19 01:05 Lymphocytes % 33.4 % (20.0-50.0) 04/28/19 01:05 Monocytes % 10.9 % (2.0-10.0) H 04/28/19 01:05 Eosinophils % 1.9 % (0.0-5.0) 04/28/19 01:05 Basophils % 0.0 % (0.0-2.0) 04/28/19 01:05 Sodium 142 mEq/L (136-145) 04/28/19 01:00 Potassium 3.3 mEq/L (3.5-5.1) L 04/28/19 01:00 Chloride 110 mEq/L (98-107) H 04/28/19 01:00 Carbon Dioxide 23.8 mEq/L (21.0-31.0) 04/28/19 01:00 Anion Gap 11.5 (7.0-16.0) 04/28/19 01:00 BUN 13 mg/dL (7-25) 04/28/19 01:00 Creatinine 0.5 mg/dL (0.6-1.2) L 04/28/19 01:00 Est GFR ( Amer) > 60.0 ml/min (>90) 04/28/19 01:00 Est GFR (Non-Af Amer) > 60.0 ml/min 04/28/19 01:00 BUN/Creatinine Ratio 26.0 04/28/19 01:00 Glucose 110 mg/dL (70-105) H 04/28/19 01:00 Whole Bld Lactic Acid 1.05 mmol/L (0.60-1.99) 04/28/19 01:05 Calcium 9.5 mg/dL (8.6-10.3) 04/28/19 01:00 Total Bilirubin 1.2 mg/dL (0.3-1.0) H 04/28/19 01:00 AST 95 U/L (13-39) H 04/28/19 01:00 ALT 99 U/L (7-52) H 04/28/19 01:00 Alkaline Phosphatase 104 U/L (34-104) 04/28/19 01:00 Total Protein 8.0 gm/dL (6.0-8.3) 04/28/19 01:00 Albumin 3.9 gm/dL (3.7-5.3) 04/28/19 01:00 Globulin 4.1 gm/dL 04/28/19 01:00 Albumin/Globulin Ratio 1.0 (1.0-1.8) 04/28/19 01:00 Triglycerides 49 mg/dL (<150) 04/28/19 01:00 Cholesterol 95 mg/dL (<200) 04/28/19 01:00 LDL Cholesterol Direct 57 mg/dL (75-193) L 04/28/19 01:00 HDL Cholesterol 31 mg/dL (23-92) 04/28/19 01:00 TSH 1.00 uIU/ml (0.34-5.60) 04/28/19 01:00 Urine Source RANDOM 04/28/19 01:00 Urine Color ORANGE 04/28/19 01:00 Urine Clarity HAZY (CLEAR) 04/28/19 01:00 Urine pH 6.0 (4.6 - 8.0) 04/28/19 01:00 Ur Specific [place] 1.025 (1.005-1.030) 04/28/19 01:00 Urine Protein 30 mg/dL (NEGATIVE) H 04/28/19 01:00 Urine Glucose (UA) NEGATIVE mg/dL (NEGATIVE) 04/28/19 01:00 Urine Ketones TRACE mg/dL (NEGATIVE) 04/28/19 01:00 Urine Blood NEGATIVE (NEGATIVE) 04/28/19 01:00 Urine Nitrate POSITIVE (NEGATIVE) H 04/28/19 01:00 Urine Bilirubin NEGATIVE (NEGATIVE) 04/28/19 01:00 Urine Urobilinogen 4.0 E.U./dL (0.2 - 1.0) H 04/28/19 01:00 Ur Leukocyte Esterase TRACE (NEGATIVE) H 04/28/19 01:00 Urine RBC 0-2 /hpf (0-5) 04/28/19 01:00 Urine WBC 0-2 /hpf (0-5) 04/28/19 01:00 Ur Epithelial Cells FEW /lpf (FEW) 04/28/19 01:00 Urine Bacteria MODERATE /hpf (NONE SEEN) H 04/28/19 01:00 Levetiracetam 11.7 ug/mL (10.0-40.0) 04/28/19 01:05 RPR NONREACTIVE (NONREACTIVE) 04/28/19 01:05 Hepatitis A IgM Ab Negative (Negative) 04/28/19 08:56 Hep Bs Antigen Negative (Negative) 04/28/19 08:56 Hep B Core IgM Ab Negative (Negative) 04/28/19 08:56 Hepatitis C Antibody >11.0 s/co ratio (0.0-0.9) H 04/28/19 08:56 HIV-1 RNA Qnt (RT-PCR) <20 copies/mL 05/03/19 15:00 - Physical Exam Vitals and I&O: Vital Signs Temp 98.3 F 05/10/19 06:12 Pulse 73 05/10/19 06:12 Resp 19 05/10/19 06:12 BP 105/67 05/10/19 06:12 Pulse Ox 99 05/10/19 06:12 Intake & Output 05/09/19 05/10/19 05/10/19 18:59 06:59 18:59 Intake Total 1000 240 Balance 1000 240 Intake: Oral 1000 240 Other: # Voids 4 3 # Bowel Movements 1 0 Stool Characteristics Soft Active Medications: Current Medications Acetaminophen (Tylenol) 650 mg PO Q4HR PRN PRN Reason: Pain or Fever >101 Stop: 06/27/19 12:31 Last Admin: 05/07/19 23:29 Dose: 650 mg Al Hydrox/Mg Hydrox/Simethicone (Maalox) 30 ml PO Q4HR PRN PRN Reason: GI DISTRESS Stop: 06/27/19 03:31 Docusate Sodium (Colace) 100 mg PO DAILY [facility] Stop: 06/28/19 08:59 Last Admin: 05/10/19 08:17 Dose: 100 mg Famotidine (Pepcid) 40 mg PO DAILY [facility] Stop: 06/28/19 08:59 Last Admin: 05/10/19 08:18 Dose: 40 mg Haloperidol Lactate (Haldol) 2 mg PO BID PRN; Protocol PRN Reason: Agitation Stop: 07/07/19 12:28 Last Admin: 05/10/19 09:16 Dose: 2 mg Ibuprofen (Motrin) 600 mg PO Q6H PRN PRN Reason: moderate to severe pain Stop: 07/07/19 23:14 Last Admin: 05/09/19 09:00 Dose: 600 mg Lactulose (Cephulac) 30 gm PO TID [facility] Stop: 06/27/19 13:59 Last Admin: 05/10/19 08:17 Dose: 30 gm Levetiracetam (Keppra) 500 mg PO Q12H [facility] Stop: 07/05/19 20:59 Last Admin: 05/10/19 08:17 Dose: 500 mg Lorazepam (Ativan) 0.5 mg PO Q6HR PRN; Protocol PRN Reason: Agitation Stop: 07/03/19 10:24 Last Admin: 05/10/19 09:16 Dose: 0.5 mg Olanzapine (Zyprexa Zydis) 10 mg PO HS [facility]; Protocol Stop: 07/03/19 20:59 Last Admin: 05/09/19 22:19 Dose: 10 mg Zolpidem Tartrate (Ambien) 5 mg PO HS PRN PRN Reason: Insomnia Stop: 06/27/19 03:31 Last Admin: 05/08/19 20:59 Dose: 5 mg General: demented HEENT: NC/AT, PERRLA, EOMI Neck: Supple, No JVD Lungs: CTAB Cardiovascular: RRR, Normal S1, Normal S2 Abdomen: soft, thin, non-distended, positive bowel sound Extremities: excoriation Internal Medicine Assmt/Plan - Assessment Assessment: ASSESSMENT AND PLAN: Leukopenia, hypokalemia, elevated liver function tests, hepatitis c, seizure, but severe low back pain. - Plan Plan: PLAN: Continue the patient on lactulose and _rest of___ medications. The patient was given potassium and antibiotic. We will monitor the patient's signs and symptoms for urinary tract infection. We will continue to follow with you. Nutritional Asmnt/Malnutr-PDOC - Dietary Evaluation Malnutrition Findings (Please click <Entered> for more info): Nutritional Asmnt/Malnutrition Start: 05/03/19 19: 11 Text: Status: Active Freq: Protocol: Document 05/03/19 19:11 [email or web address] (Rec: 05/03/19 19:51 [email or web address]) Nutritional Asmnt/Malnutrition Patient General Information Nutritional Screening Moderate Risk Pertinent Medical Hx/Surgical Hx GERD Subjective Information Pt A&O x 1 to self & time. Pt with poor appetite, refusing some meds, per chart. PO intakes varied, 50-100%. Current Diet Order/ Nutrition Support Mechanical Soft/Chopped Patient / S.O Not Indicated Pertinent Medications docusate sodium, famotidine, lactulose, MVI Pertinent Labs K 3.3, Glucose 110, total bilirubin 1.2, AST 95, ALT 99 Nutritional Hx/Data Height 1.63 m Height (Calculated Centimeters) 162.6 Current Weight (lbs) 72.575 kg Weight (Calculated Kilograms) 72.6 Weight (Calculated Grams) 64713.8 [place] Body Weight 120 lb % [place] Body Weight 133 Body Mass Index (BMI) 27.4 Weight Status Overweight GI Symptoms GI Symptoms None Last BM 04/29 (x 1) Skin Integrity/Comment: Edema: non-pitting 2+ LLE, pitting 2+ RLE Joselo Score: 18 Nutrition Risk: adequate Estimated Nutritional Goals BEE in Kcals: Using Current wt Calories/Kcals/Kg 20-25 Kcals Calculated 8120-2981 Protein: Using Current wt Protein g/k-1.25 Protein Calculated 73-91 Fluid: ml 2530-6133 Nutritional Problem 1. Problem Problem Predicted sub-optimal energy intake related to decreased appetite as evidenced by PO intakes varied, pt consuming < 75% of some meals. Intervention/Recommendation Recommendations by RD Add supplement feedings Comments continue current diet rx per MD. Suggest add Ensure Pudding TID to optimize nutritional intakes. Expected Outcomes/Goals Expected Outcomes/Goals PO intakes >/=75% average of meals and/or PO supplement. Electronically Signed by: Vane Camejo, MPH, RDN Clinical Dietitian 05/03/19 7:53 PM
[2019-05-10] MEDS: OLANZapine 10 mg Oral Disintegrating Tab PO SCH (21:37)
[2019-05-11] MEDS: Lactulose 10 Gm/15 mL 30mL UDC PO SCH ×3 (08:51→20:16)
[2019-05-11] MEDS: Multivitamin w/ Minerals Tab PO SCH (08:51)
--- NOTE | 2019-05-11 09:05 | Progress Notes ---
DATE: 05/10/2019 PSYCHIATRIC PROGRESS NOTE SUBJECTIVE: Staff was spoken to. The patient is interviewed. Mood is noted to be irritable. Affect is constricted. The patient is going on a tangent. Insight and judgment at this time are noted to be still impaired. Impulse control is noted to be poor. Coping skills are also noted to be very poor. The patient has been not able to comply with the treatment. The patient has to be given the emergency doses of medications in view of her poor coping skills. ASSESSMENT: The patient is still impulsive. PLAN: To continue the patient with the supportive therapy, encouraged the patient to verbalize the concerns rather than to act out. JOB# [id number]
--- NOTE | 2019-05-11 13:05 | Internal Medicine Prog Note ---
Internal Medicine Subjective - Subjective Patient seen and examined:: with staff, chart reviewed Patient is:: awake, verbal, interactive Patient Complaints of:: congestion Per staff patient has:: no adverse event, no episodes of fall, poor appetite Internal Medicine Objective - Results Result Diagrams: 04/28/19 01:05 04/28/19 01:00 Recent Labs: Laboratory Last Values WBC 3.7 Th/cmm (4.8-10.8) L 04/28/19 01:05 RBC 4.06 Mil/cmm (3.80-5.20) 04/28/19 01:05 Hgb 13.0 gm/dL (12-16) 04/28/19 01:05 Hct 39.5 % (41.0-60) L 04/28/19 01:05 MCV 97.3 fl (81-100) 04/28/19 01:05 MCH 32.1 pg (27.0-31.0) H 04/28/19 01:05 MCHC Differential 33.0 pg (28.0-36.0) 04/28/19 01:05 RDW 12.8 % (11.5-20.0) 04/28/19 01:05 Plt Count 166 Th/cmm (150-400) 04/28/19 01:05 MPV 7.6 fl 04/28/19 01:05 Neutrophils % 53.8 % (40.0-80.0) 04/28/19 01:05 Lymphocytes % 33.4 % (20.0-50.0) 04/28/19 01:05 Monocytes % 10.9 % (2.0-10.0) H 04/28/19 01:05 Eosinophils % 1.9 % (0.0-5.0) 04/28/19 01:05 Basophils % 0.0 % (0.0-2.0) 04/28/19 01:05 Sodium 142 mEq/L (136-145) 04/28/19 01:00 Potassium 3.3 mEq/L (3.5-5.1) L 04/28/19 01:00 Chloride 110 mEq/L (98-107) H 04/28/19 01:00 Carbon Dioxide 23.8 mEq/L (21.0-31.0) 04/28/19 01:00 Anion Gap 11.5 (7.0-16.0) 04/28/19 01:00 BUN 13 mg/dL (7-25) 04/28/19 01:00 Creatinine 0.5 mg/dL (0.6-1.2) L 04/28/19 01:00 Est GFR ( Amer) > 60.0 ml/min (>90) 04/28/19 01:00 Est GFR (Non-Af Amer) > 60.0 ml/min 04/28/19 01:00 BUN/Creatinine Ratio 26.0 04/28/19 01:00 Glucose 110 mg/dL (70-105) H 04/28/19 01:00 Whole Bld Lactic Acid 1.05 mmol/L (0.60-1.99) 04/28/19 01:05 Calcium 9.5 mg/dL (8.6-10.3) 04/28/19 01:00 Total Bilirubin 1.2 mg/dL (0.3-1.0) H 04/28/19 01:00 AST 95 U/L (13-39) H 04/28/19 01:00 ALT 99 U/L (7-52) H 04/28/19 01:00 Alkaline Phosphatase 104 U/L (34-104) 04/28/19 01:00 Total Protein 8.0 gm/dL (6.0-8.3) 04/28/19 01:00 Albumin 3.9 gm/dL (3.7-5.3) 04/28/19 01:00 Globulin 4.1 gm/dL 04/28/19 01:00 Albumin/Globulin Ratio 1.0 (1.0-1.8) 04/28/19 01:00 Triglycerides 49 mg/dL (<150) 04/28/19 01:00 Cholesterol 95 mg/dL (<200) 04/28/19 01:00 LDL Cholesterol Direct 57 mg/dL (75-193) L 04/28/19 01:00 HDL Cholesterol 31 mg/dL (23-92) 04/28/19 01:00 TSH 1.00 uIU/ml (0.34-5.60) 04/28/19 01:00 Urine Source RANDOM 04/28/19 01:00 Urine Color ORANGE 04/28/19 01:00 Urine Clarity HAZY (CLEAR) 04/28/19 01:00 Urine pH 6.0 (4.6 - 8.0) 04/28/19 01:00 Ur Specific [place] 1.025 (1.005-1.030) 04/28/19 01:00 Urine Protein 30 mg/dL (NEGATIVE) H 04/28/19 01:00 Urine Glucose (UA) NEGATIVE mg/dL (NEGATIVE) 04/28/19 01:00 Urine Ketones TRACE mg/dL (NEGATIVE) 04/28/19 01:00 Urine Blood NEGATIVE (NEGATIVE) 04/28/19 01:00 Urine Nitrate POSITIVE (NEGATIVE) H 04/28/19 01:00 Urine Bilirubin NEGATIVE (NEGATIVE) 04/28/19 01:00 Urine Urobilinogen 4.0 E.U./dL (0.2 - 1.0) H 04/28/19 01:00 Ur Leukocyte Esterase TRACE (NEGATIVE) H 04/28/19 01:00 Urine RBC 0-2 /hpf (0-5) 04/28/19 01:00 Urine WBC 0-2 /hpf (0-5) 04/28/19 01:00 Ur Epithelial Cells FEW /lpf (FEW) 04/28/19 01:00 Urine Bacteria MODERATE /hpf (NONE SEEN) H 04/28/19 01:00 Levetiracetam 11.7 ug/mL (10.0-40.0) 04/28/19 01:05 RPR NONREACTIVE (NONREACTIVE) 04/28/19 01:05 Hepatitis A IgM Ab Negative (Negative) 04/28/19 08:56 Hep Bs Antigen Negative (Negative) 04/28/19 08:56 Hep B Core IgM Ab Negative (Negative) 04/28/19 08:56 Hepatitis C Antibody >11.0 s/co ratio (0.0-0.9) H 04/28/19 08:56 HIV-1 RNA Qnt (RT-PCR) <20 copies/mL 05/03/19 15:00 - Physical Exam Vitals and I&O: Vital Signs Temp 97 F 05/11/19 06:24 Pulse 89 05/11/19 06:24 Resp 19 05/11/19 08:00 BP 128/72 05/11/19 06:24 Pulse Ox 97 05/11/19 06:24 Intake & Output 05/10/19 05/11/19 05/11/19 18:59 06:59 18:59 Intake Total 300 Balance 300 Intake: Oral 300 Other: # Voids 2 # Bowel Movements 0 Active Medications: Current Medications Acetaminophen (Tylenol) 650 mg PO Q4HR PRN PRN Reason: Pain or Fever >101 Stop: 06/27/19 12:31 Last Admin: 05/07/19 23:29 Dose: 650 mg Al Hydrox/Mg Hydrox/Simethicone (Maalox) 30 ml PO Q4HR PRN PRN Reason: GI DISTRESS Stop: 06/27/19 03:31 Docusate Sodium (Colace) 100 mg PO DAILY [facility] Stop: 06/28/19 08:59 Last Admin: 05/11/19 08:50 Dose: Not Given Famotidine (Pepcid) 40 mg PO DAILY EILEEN Stop: 06/28/19 08:59 Last Admin: 05/11/19 08:50 Dose: 40 mg Haloperidol Lactate (Haldol) 2 mg PO BID PRN; Protocol PRN Reason: Agitation Stop: 07/07/19 12:28 Last Admin: 05/10/19 09:16 Dose: 2 mg Ibuprofen (Motrin) 600 mg PO Q6H PRN PRN Reason: moderate to severe pain Stop: 07/07/19 23:14 Last Admin: 05/09/19 09:00 Dose: 600 mg Lactulose (Cephulac) 30 gm PO TID EILEEN Stop: 06/27/19 13:59 Last Admin: 05/11/19 08:51 Dose: Not Given Levetiracetam (Keppra) 500 mg PO Q12H EILEEN Stop: 07/05/19 20:59 Last Admin: 05/11/19 08:51 Dose: 500 mg Lorazepam (Ativan) 0.5 mg PO Q6HR PRN; Protocol PRN Reason: Agitation Stop: 07/03/19 10:24 Last Admin: 05/10/19 09:16 Dose: 0.5 mg Olanzapine (Zyprexa Zydis) 10 mg PO HS EILEEN; Protocol Stop: 07/03/19 20:59 Last Admin: 05/10/19 21:37 Dose: 10 mg Zolpidem Tartrate (Ambien) 5 mg PO HS PRN PRN Reason: Insomnia Stop: 06/27/19 03:31 Last Admin: 05/10/19 21:37 Dose: 5 mg General: demented HEENT: NC/AT, PERRLA, EOMI Neck: Supple, No JVD Lungs: CTAB Cardiovascular: RRR, Normal S1, Normal S2 Abdomen: soft, thin, non-distended, positive bowel sound Extremities: excoriation Internal Medicine Assmt/Plan - Assessment Assessment: ASSESSMENT AND PLAN: Leukopenia, hypokalemia, elevated liver function tests, hepatitis c, seizure, but severe low back pain. - Plan Plan: PLAN: Continue the patient on lactulose and _rest of___ medications. The patient was given potassium and antibiotic. We will monitor the patient's signs and symptoms for urinary tract infection. We will continue to follow with you. Nutritional Asmnt/Malnutr-PDOC - Dietary Evaluation Malnutrition Findings (Please click <Entered> for more info): Nutritional Asmnt/Malnutrition Start: 05/03/19 19: 11 Text: Status: Active Freq: Protocol: Document 05/03/19 19:11 [email or web address] (Rec: 05/03/19 19:51 [email or web address]) Nutritional Asmnt/Malnutrition Patient General Information Nutritional Screening Moderate Risk Pertinent Medical Hx/Surgical Hx GERD Subjective Information Pt A&O x 1 to self & time. Pt with poor appetite, refusing some meds, per chart. PO intakes varied, 50-100%. Current Diet Order/ Nutrition Support Mechanical Soft/Chopped Patient / S.O Not Indicated Pertinent Medications docusate sodium, famotidine, lactulose, MVI Pertinent Labs K 3.3, Glucose 110, total bilirubin 1.2, AST 95, ALT 99 Nutritional Hx/Data Height 1.63 m Height (Calculated Centimeters) 162.6 Current Weight (lbs) 72.575 kg Weight (Calculated Kilograms) 72.6 Weight (Calculated Grams) 16888.8 [place] Body Weight 120 lb % [place] Body Weight 133 Body Mass Index (BMI) 27.4 Weight Status Overweight GI Symptoms GI Symptoms None Last BM 04/29 (x 1) Skin Integrity/Comment: Edema: non-pitting 2+ LLE, pitting 2+ RLE Joselo Score: 18 Nutrition Risk: adequate Estimated Nutritional Goals BEE in Kcals: Using Current wt Calories/Kcals/Kg 20-25 Kcals Calculated 4308-7533 Protein: Using Current wt Protein g/k-1.25 Protein Calculated 73-91 Fluid: ml 5880-0700 Nutritional Problem 1. Problem Problem Predicted sub-optimal energy intake related to decreased appetite as evidenced by PO intakes varied, pt consuming < 75% of some meals. Intervention/Recommendation Recommendations by RD Add supplement feedings Comments continue current diet rx per MD. Suggest add Ensure Pudding TID to optimize nutritional intakes. Expected Outcomes/Goals Expected Outcomes/Goals PO intakes >/=75% average of meals and/or PO supplement. Electronically Signed by: Vane Camejo, MPH, RDN Clinical Dietitian 05/03/19 7:53 PM
[2019-05-11] MEDS ORDERED: Haloperidol Lactate Oral sol. 2 mg/mL Udc PO PRN (18:37)
[2019-05-11] MEDS: OLANZapine 10 mg Oral Disintegrating Tab PO SCH (20:15)
--- NOTE | 2019-05-11 22:51 | Progress Notes ---
DATE: 05/11/2019 PSYCHOLOGY PROGRESS NOTE SUBJECTIVE: The patient is seen up in her wheelchair in the activity area. The patient is interviewed. Case is discussed with staff. The patient's mood is still fluctuating. The patient continues to be easily irritated and is responding tangentially to the majority of the clinical questions. Staff reports the patient's impulse control continues to be a problem. The patient has been reluctantly and intermittently compliant with treatment. Staff reports the patient had been given an emergency dose of medication in view of the patient's poor ability to respond to cognitive and behavioral redirection and her uncontainable behavior as well as poor impulse control. OBJECTIVE: Mood is irritable and fluctuating. Affect is broad and animated. Thought process is markedly tangential with loose associations and derailments. The patient denied any hallucinations or delusions. The patient's behavior has been mostly noncompliant with the treatment. The patient is taking medications intermittently when the staff is able to convince her to do so. ASSESSMENT: The patient's impulsivity and psychosis persists. PLAN: We provided de-escalation as well as cognitive and behavioral redirection. We provided remotivation for the patient to become compliant and stay compliant with her care and treatment. We provided reality differentiation and integration. We provided coping strategies for chronic severe mental illness. We encouraged the patient to demonstrate emotional and self-regulation by verbalizing her concerns versus acting out. We will follow up in 2 days to continue the present treatment, if the patient remains admitted on the unit. [facility]# [id number] FERNANDO
--- NOTE | 2019-05-12 03:36 | Progress Notes ---
DATE: 05/11/2019 PSYCHIATRIC PROGRESS NOTE SUBJECTIVE: Staff was spoken to. The patient is interviewed. Mood is noted to be irritable. Affect is constricted. Insight and judgment are noted to be still impaired. The patient is talking to self and the patient has been reluctant to comply with the medications. Coping skills are noted to be poor at this time. No side effects to the medications are noted. Staff have been instructed to convince the patient. The patient is currently on haloperidol on a p.r.n. basis and is also on olanzapine 10 mg at bedtime. The patient's compliance with the medication is noted to be sporadic. ASSESSMENT: The patient is still impulsive. PLAN: ____ Plan to increase the dose on the Haldol to 5 mg b.i.d. p.r.n. and follow the patient with the supportive therapy. The patient continues to be reluctant to comply with the medication, possibly Haldol Decanoate is going to be given. [facility]# [id number]
[2019-05-12] MEDS: Multivitamin w/ Minerals Tab PO SCH (08:26)
[2019-05-12] MEDS: Lactulose 10 Gm/15 mL 30mL UDC PO SCH ×3 (08:27→13:21)
--- NOTE | 2019-05-12 12:31 | Internal Medicine Prog Note ---
Internal Medicine Subjective - Subjective Patient seen and examined:: with staff, chart reviewed Patient is:: awake, verbal, interactive Patient Complaints of:: congestion Per staff patient has:: no adverse event, no episodes of fall, poor appetite Internal Medicine Objective - Results Result Diagrams: 04/28/19 01:05 04/28/19 01:00 Recent Labs: Laboratory Last Values WBC 3.7 Th/cmm (4.8-10.8) L 04/28/19 01:05 RBC 4.06 Mil/cmm (3.80-5.20) 04/28/19 01:05 Hgb 13.0 gm/dL (12-16) 04/28/19 01:05 Hct 39.5 % (41.0-60) L 04/28/19 01:05 MCV 97.3 fl (81-100) 04/28/19 01:05 MCH 32.1 pg (27.0-31.0) H 04/28/19 01:05 MCHC Differential 33.0 pg (28.0-36.0) 04/28/19 01:05 RDW 12.8 % (11.5-20.0) 04/28/19 01:05 Plt Count 166 Th/cmm (150-400) 04/28/19 01:05 MPV 7.6 fl 04/28/19 01:05 Neutrophils % 53.8 % (40.0-80.0) 04/28/19 01:05 Lymphocytes % 33.4 % (20.0-50.0) 04/28/19 01:05 Monocytes % 10.9 % (2.0-10.0) H 04/28/19 01:05 Eosinophils % 1.9 % (0.0-5.0) 04/28/19 01:05 Basophils % 0.0 % (0.0-2.0) 04/28/19 01:05 Sodium 142 mEq/L (136-145) 04/28/19 01:00 Potassium 3.3 mEq/L (3.5-5.1) L 04/28/19 01:00 Chloride 110 mEq/L (98-107) H 04/28/19 01:00 Carbon Dioxide 23.8 mEq/L (21.0-31.0) 04/28/19 01:00 Anion Gap 11.5 (7.0-16.0) 04/28/19 01:00 BUN 13 mg/dL (7-25) 04/28/19 01:00 Creatinine 0.5 mg/dL (0.6-1.2) L 04/28/19 01:00 Est GFR ( Amer) > 60.0 ml/min (>90) 04/28/19 01:00 Est GFR (Non-Af Amer) > 60.0 ml/min 04/28/19 01:00 BUN/Creatinine Ratio 26.0 04/28/19 01:00 Glucose 110 mg/dL (70-105) H 04/28/19 01:00 Whole Bld Lactic Acid 1.05 mmol/L (0.60-1.99) 04/28/19 01:05 Calcium 9.5 mg/dL (8.6-10.3) 04/28/19 01:00 Total Bilirubin 1.2 mg/dL (0.3-1.0) H 04/28/19 01:00 AST 95 U/L (13-39) H 04/28/19 01:00 ALT 99 U/L (7-52) H 04/28/19 01:00 Alkaline Phosphatase 104 U/L (34-104) 04/28/19 01:00 Total Protein 8.0 gm/dL (6.0-8.3) 04/28/19 01:00 Albumin 3.9 gm/dL (3.7-5.3) 04/28/19 01:00 Globulin 4.1 gm/dL 04/28/19 01:00 Albumin/Globulin Ratio 1.0 (1.0-1.8) 04/28/19 01:00 Triglycerides 49 mg/dL (<150) 04/28/19 01:00 Cholesterol 95 mg/dL (<200) 04/28/19 01:00 LDL Cholesterol Direct 57 mg/dL (75-193) L 04/28/19 01:00 HDL Cholesterol 31 mg/dL (23-92) 04/28/19 01:00 TSH 1.00 uIU/ml (0.34-5.60) 04/28/19 01:00 Urine Source RANDOM 04/28/19 01:00 Urine Color ORANGE 04/28/19 01:00 Urine Clarity HAZY (CLEAR) 04/28/19 01:00 Urine pH 6.0 (4.6 - 8.0) 04/28/19 01:00 Ur Specific [place] 1.025 (1.005-1.030) 04/28/19 01:00 Urine Protein 30 mg/dL (NEGATIVE) H 04/28/19 01:00 Urine Glucose (UA) NEGATIVE mg/dL (NEGATIVE) 04/28/19 01:00 Urine Ketones TRACE mg/dL (NEGATIVE) 04/28/19 01:00 Urine Blood NEGATIVE (NEGATIVE) 04/28/19 01:00 Urine Nitrate POSITIVE (NEGATIVE) H 04/28/19 01:00 Urine Bilirubin NEGATIVE (NEGATIVE) 04/28/19 01:00 Urine Urobilinogen 4.0 E.U./dL (0.2 - 1.0) H 04/28/19 01:00 Ur Leukocyte Esterase TRACE (NEGATIVE) H 04/28/19 01:00 Urine RBC 0-2 /hpf (0-5) 04/28/19 01:00 Urine WBC 0-2 /hpf (0-5) 04/28/19 01:00 Ur Epithelial Cells FEW /lpf (FEW) 04/28/19 01:00 Urine Bacteria MODERATE /hpf (NONE SEEN) H 04/28/19 01:00 Levetiracetam 11.7 ug/mL (10.0-40.0) 04/28/19 01:05 RPR NONREACTIVE (NONREACTIVE) 04/28/19 01:05 Hepatitis A IgM Ab Negative (Negative) 04/28/19 08:56 Hep Bs Antigen Negative (Negative) 04/28/19 08:56 Hep B Core IgM Ab Negative (Negative) 04/28/19 08:56 Hepatitis C Antibody >11.0 s/co ratio (0.0-0.9) H 04/28/19 08:56 HIV-1 RNA Qnt (RT-PCR) <20 copies/mL 05/03/19 15:00 - Physical Exam Vitals and I&O: Vital Signs Temp 97.9 F 05/12/19 06:36 Pulse 88 05/12/19 06:36 Resp 20 05/12/19 06:36 BP 129/57 05/12/19 06:36 Pulse Ox 96 05/12/19 06:36 Intake & Output 05/11/19 05/12/19 05/12/19 18:59 06:59 18:59 Intake Total 240 Balance 240 Intake: Oral 240 Other: # Voids 2 # Bowel Movements 0 Active Medications: Current Medications Acetaminophen (Tylenol) 650 mg PO Q4HR PRN PRN Reason: Pain or Fever >101 Stop: 06/27/19 12:31 Last Admin: 05/07/19 23:29 Dose: 650 mg Al Hydrox/Mg Hydrox/Simethicone (Maalox) 30 ml PO Q4HR PRN PRN Reason: GI DISTRESS Stop: 06/27/19 03:31 Docusate Sodium (Colace) 100 mg PO DAILY EILEEN Stop: 06/28/19 08:59 Last Admin: 05/12/19 08:21 Dose: 100 mg Famotidine (Pepcid) 40 mg PO DAILY EILEEN Stop: 06/28/19 08:59 Last Admin: 05/12/19 08:27 Dose: 40 mg Ibuprofen (Motrin) 600 mg PO Q6H PRN PRN Reason: moderate to severe pain Stop: 07/07/19 23:14 Last Admin: 05/11/19 20:16 Dose: 600 mg Lactulose (Cephulac) 30 gm PO TID EILEEN Stop: 06/27/19 13:59 Last Admin: 05/12/19 09:00 Dose: Not Given Levetiracetam (Keppra) 500 mg PO Q12H EILEEN Stop: 07/05/19 20:59 Last Admin: 05/12/19 08:26 Dose: 500 mg Lorazepam (Ativan) 0.5 mg PO Q6HR PRN; Protocol PRN Reason: Agitation Stop: 07/03/19 10:24 Last Admin: 05/12/19 08:28 Dose: 0.5 mg Olanzapine (Zyprexa Zydis) 10 mg PO HS EILEEN; Protocol Stop: 07/03/19 20:59 Last Admin: 05/11/19 20:15 Dose: 10 mg Zolpidem Tartrate (Ambien) 5 mg PO HS PRN PRN Reason: Insomnia Stop: 06/27/19 03:31 Last Admin: 05/11/19 20:15 Dose: 5 mg General: demented HEENT: NC/AT, PERRLA, EOMI Neck: Supple, No JVD Lungs: CTAB Cardiovascular: RRR, Normal S1, Normal S2 Abdomen: soft, thin, non-distended, positive bowel sound Extremities: excoriation Internal Medicine Assmt/Plan - Assessment Assessment: ASSESSMENT AND PLAN: Leukopenia, hypokalemia, elevated liver function tests, hepatitis c, seizure, but severe low back pain. - Plan Plan: PLAN: Continue the patient on lactulose and _rest of___ medications. The patient was given potassium and antibiotic. We will monitor the patient's signs and symptoms for urinary tract infection. We will continue to follow with you. Nutritional Asmnt/Malnutr-PDOC - Dietary Evaluation Malnutrition Findings (Please click <Entered> for more info): Nutritional Asmnt/Malnutrition Start: 05/03/19 19: 11 Text: Status: Active Freq: Protocol: Document 05/03/19 19:11 [email or web address] (Rec: 05/03/19 19:51 [email or web address]) Nutritional Asmnt/Malnutrition Patient General Information Nutritional Screening Moderate Risk Pertinent Medical Hx/Surgical Hx GERD Subjective Information Pt A&O x 1 to self & time. Pt with poor appetite, refusing some meds, per chart. PO intakes varied, 50-100%. Current Diet Order/ Nutrition Support Mechanical Soft/Chopped Patient / S.O Not Indicated Pertinent Medications docusate sodium, famotidine, lactulose, MVI Pertinent Labs K 3.3, Glucose 110, total bilirubin 1.2, AST 95, ALT 99 Nutritional Hx/Data Height 1.63 m Height (Calculated Centimeters) 162.6 Current Weight (lbs) 72.575 kg Weight (Calculated Kilograms) 72.6 Weight (Calculated Grams) 65283.8 [place] Body Weight 120 lb % [place] Body Weight 133 Body Mass Index (BMI) 27.4 Weight Status Overweight GI Symptoms GI Symptoms None Last BM 04/29 (x 1) Skin Integrity/Comment: Edema: non-pitting 2+ LLE, pitting 2+ RLE Joselo Score: 18 Nutrition Risk: adequate Estimated Nutritional Goals BEE in Kcals: Using Current wt Calories/Kcals/Kg 20-25 Kcals Calculated 1211-2385 Protein: Using Current wt Protein g/k-1.25 Protein Calculated 73-91 Fluid: ml 9274-1266 Nutritional Problem 1. Problem Problem Predicted sub-optimal energy intake related to decreased appetite as evidenced by PO intakes varied, pt consuming < 75% of some meals. Intervention/Recommendation Recommendations by RD Add supplement feedings Comments continue current diet rx per MD. Suggest add Ensure Pudding TID to optimize nutritional intakes. Expected Outcomes/Goals Expected Outcomes/Goals PO intakes >/=75% average of meals and/or PO supplement. Electronically Signed by: Vane Camejo, MPH, RDN Clinical Dietitian 05/03/19 7:53 PM
--- NOTE | 2019-05-13 04:18 | Progress Notes ---
DATE: 05/12/2019 PSYCHIATRIC PROGRESS NOTE SUBJECTIVE: Staff was spoken to. The patient is interviewed. Mood is noted to be less irritable. Affect is appropriate. Not suicidal or homicidal. Insight and judgment are noted to be improving. Impulse control is noted to be fair. Coping skills are also noted to be fair. No side effects to the medications are noted. The patient has been able to participate in the groups and verbalize the concerns rather than to act out. ASSESSMENT: The patient is stabilizing. PLAN: To discharge the patient today for followup on an outpatient basis. JOB# [id number]
--- NOTE | 2019-05-14 20:06 | Discharge Summary ---
DATE OF DISCHARGE: 05/12/2019 IDENTIFYING DATA: The patient is a 69-year-old resident of [place]. Information obtained by directly interviewing the patient as well as reviewing the admission papers. JUSTIFICATION OF HOSPITALIZATION: The patient is admitted for her increased episodes of agitation and aggression. DIAGNOSES AT THE TIME OF THE ADMISSION: AXIS I: Schizophrenia, chronic paranoid type with acute exacerbation. 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 1D: Personality change due to medical condition. AXIS II: None. AXIS III: Traumatic subdural hematoma of the brain, seizure disorder and spondylosis. For a detailed history of present illness, please refer to the 04/28/[address] Luis Miguel Reyes. HOSPITAL COURSE AND RESPONSE TO TREATMENT: The patient has been observed on inpatient unit, provided with supportive psychotherapy. The patient has been noncompliant with the medication, has been screaming and yelling most of the time and has to be closely monitored. The patient in view of her noncompliance has been started along with the aripiprazole. The patient has been started with the Haldol. The patient has been able to tolerate the medication that was changed to olanzapine. The patient was given up to 10 mg of olanzapine at night time and Haldol has been given on a p.r.n. basis. The Seroquel was discontinued and with these medications, the patient's mood swings started to come under control, psychosis started to resolve and the patient was discharged with recommendation that she is going to be seeking treatment on an outpatient basis by Dr. Reyes. MENTAL STATUS EXAMINATION: At the time of discharge, the patient's mood is noted to be less irritable. Affect is appropriate. Not suicidal or homicidal. Insight and judgment are noted to be improving. Impulse control is noted to be fair. Coping skills are also noted to be fair. No side effects to the medications are noted at the time of the discharge. CONDITION: At the time of discharge is noted to be stable. [facility]# [id number]
== END 2019-05-12 15:25 | DRG 885 ==
LOC: ER 00:41 → GERO 02:55
PROVIDERS: ADMIT Psychiatry & Neurology Psychiatry; ATTEND Psychiatry & Neurology Psychiatry
DX: F20.0 Paranoid schizophrenia (principal); F01.51 Vascular dementia, unspecified severity, with behavioral disturbance; F63.9 Impulse disorder, unspecified; D72.819 Decreased white blood cell count, unspecified; E87.6 Hypokalemia; R94.5 Abnormal results of liver function studies; G89.29 Other chronic pain; M54.5 Low back pain; G40.909 Epilepsy, unspecified, not intractable, without status epilepticus; M47.9 Spondylosis, unspecified; F39 Unspecified mood [affective] disorder; S06.5X0S Traumatic subdural hemorrhage without loss of consciousness, sequela
CPT/HCPCS: 36415-UA; 80053-TC; 80061-TC; 80074-90; 80299-90; 81001-TC; 83036-90; 83605; 84443-TC; 85025-TC; 86592-TC; 87086-90; 87536-90; 93005; A4216; G0410; J0696; J1200; J1630; Z7610